=== PATIENT | female | born 1970 | race Caucasian/White ===

== ENCOUNTER 2016-04-20 23:00 | Emergency (ER) | payer MEDICARE ==
[2016-04-20] MEDS ORDERED: NORMAL SALINE 1000 ML 1,000 ML IV PRN (23:14)
[2016-04-20] MEDS ORDERED: ONDANSETRON HCL INJ/PF 4 MG/2 ML SDV IV ONE (23:14)
--- NOTE | 2016-04-20 23:18 | ER Document Report ---
ED GI/ - General Stated Complaint: CHEST PAIN Time seen by provider: 23:15 Mode of Arrival: Medic Information source: Patient TRAVEL OUTSIDE OF THE [place] IN LAST 30 DAYS: No - HPI Patient complains to provider of: Abdominal pain, Diarrhea, Urinary retention, Vomiting Onset: Yesterday Timing/Duration: Gradual Quality of pain: Achy Severity at maximum: Moderate Severity in ED: Moderate Pain Level: 3 Location: Chest pain, Epigastric, Left flank, Right flank Vaginal bleeding (Compared to normal period): None Associated symptoms: Chest pain, Diarrhea, Nausea, Urinary retention, Vomiting Exacerbated by: Movement, Coughing, Deep breathing Relieved by: Denies Similar symptoms previously: Yes Recently seen / treated by doctor: No Notes: 04/20/16 23:16 Patient is a 46-year-old female residing to the emergency room complaining of chest pain, back pain, "kidney pain"', diarrhea, vomiting, symptoms started yesterday evening, she denies a fever, no dysuria, states that she has actually not urinated all day today, patient recently moved here from [place] approximately 6 weeks ago and has not yet established primary care, reports a history of a thoracic aortic aneurysm, hypertension and emphysema, she is a smoker - Related Data Allergies/Adverse Reactions: No Known Allergies Allergy (Verified 08/21/15 12:01) Past Medical History - General Information source: Patient - Social History Smoking Status: Current Every Day Smoker Family History: CAD, Hyperlipidemia, Hypertension - Past Medical History Cardiac Medical History: Reports: Hx Heart Attack, Hx Hypercholesterolemia, Hx Hypertension Pulmonary Medical History: Reports: Hx Bronchitis, Hx COPD, Hx Pneumonia Neurological Medical History: Reports: Hx Migraine GI Medical History: Reports: Hx Gastroesophageal Reflux Disease Musculoskeltal Medical History: Reports Hx Musculoskeletal Trauma Psychiatric Medical History: Reports: Hx Anxiety Past Surgical History: Reports: Hx Appendectomy, Hx Cardiac Catheterization, Hx Section - 4, Hx Cholecystectomy, Hx Hysterectomy - Immunizations Immunizations up to date: Yes Hx Diphtheria, Pertussis, Tetanus Vaccination: Yes Hx Pneumococcal Vaccination: 11/24/12 Review of Systems - Review of Systems Constitutional: No symptoms reported EENT: No symptoms reported Cardiovascular: See HPI Respiratory: See HPI Gastrointestinal: See HPI Genitourinary: See HPI Female Genitourinary: No symptoms reported Musculoskeletal: Back pain Skin: No symptoms reported Hematologic/Lymphatic: No symptoms reported Neurological/Psychological: No symptoms reported -: Yes All other systems reviewed and negative Physical Exam - Vital signs Vitals: Temp Pulse Resp BP Pulse Ox 98.9 F 112 H 25 H 154/99 H 96 04/20/16 23:50 04/20/16 23:50 04/20/16 23:50 04/20/16 23:50 04/20/16 23:50 Interpretation: Normal - General General appearance: Appears well, Alert - HEENT Head: Normocephalic, Atraumatic Eyes: Normal Pupils: PERRL - Respiratory Respiratory status: No respiratory distress Chest status: Tender - Tender to palpate anterior chest wall Breath sounds: Normal Chest palpation: Normal - Cardiovascular Rhythm: Regular Heart sounds: Normal auscultation Murmur: No - Abdominal Inspection: Normal Distension: No distension Bowel sounds: Normal Tenderness: Tender - Tender to palpate epigastric region Organomegaly: No organomegaly - Back Back: Normal, Nontender - Extremities General upper extremity: Normal inspection, Nontender, Normal color, Normal ROM , Normal temperature General lower extremity: Normal inspection, Nontender, Normal color, Normal ROM , Normal temperature, Normal weight bearing. No: Krystyna's sign - Neurological Neuro grossly intact: Yes Cognition: Normal Orientation: AAOx4 [place] Coma Scale Eye Opening: Spontaneous [place] Coma Scale Verbal: Oriented [place] Coma Scale Motor: Obeys Commands [place] Coma Scale Total: 15 Speech: Normal Motor strength normal: LUE, RUE, LLE, RLE Sensory: Normal - Psychological Associated symptoms: Normal affect, Normal mood - Skin Skin Temperature: Warm Skin Moisture: Dry Skin Color: Normal Course - Re-evaluation Re-evalutation: 04/21/16 04:31 Patient resting comfortably, reports feeling much better after IV fluids and medications, able to tolerate by mouth intake, lab and imaging findings discussed with patient at bedside including a positive cocaine on urine drug screen, she denies knowledge of using cocaine, states she smokes some marijuana with friends and is concerned maybe it was laced with cocaine, imaging findings were discussed as well which show 4.2 cm thoracic aortic aneurysm which is unchanged from previous imaging, patient was advised to follow-up with a primary care provider, or return to emergency room if symptoms worsen, patient acknowledges understanding and agreement with this plan - Vital Signs Vital signs: Temp Pulse Resp BP Pulse Ox 98.2 F 112 H 23 H 188/118 H 95 04/21/16 04:23 04/20/16 23:50 04/21/16 04:21 04/21/16 04:21 04/21/16 04:21 - Laboratory Result Diagrams: 04/21/16 00:04 04/21/16 01:29 Laboratory results interpreted by me: 04/21/16 04/21/16 04/21/16 00:04 00:10 01:29 WBC 12.0 H RBC 6.14 H Hgb 18.6 H Hct 55.8 H Seg Neutrophils % 84.6 H Monocytes % 1.9 L Absolute Neutrophils 10.2 H Sodium 148.9 H BUN 35 H Glucose 171 H Calcium 10.9 H AST 37 H Alkaline Phosphatase 166 H Total Protein 10.8 H Lipase 12.9 L Urine Protein >=500 H Urine Ketones 20 H Urine Blood SMALL H Urine Nitrite POSITIVE H - Diagnostic Test Radiology reviewed: Image reviewed, Reports reviewed - EKG Interpretation by Me EKG shows normal: Sinus rhythm Rate: Tachycardia When compared to previous EKG there are: No significant change Procedures - Additional Procedures IV insertion Time performed: 02:23 Additional Procedures: IV insertion - 20-gauge IV placed in left antecubital space using ultrasound guidance Discharge - Discharge Clinical Impression: Cocaine use Abdominal pain Qualifiers: Abdominal location: generalized Qualified Code(s): R10.84 - Generalized abdominal pain Nausea and vomiting Qualifiers: Vomiting type: unspecified Vomiting Intractability: non-intractable Qualified Code(s): R11.2 - Nausea with vomiting, unspecified Chest pain Qualifiers: Chest pain type: unspecified Qualified Code(s): R07.9 - Chest pain, unspecified Condition: Stable Disposition: HOME, SELF-CARE Instructions: Chest Pain of Unclear Cause ([facility]), Chest Wall Pain ([facility]), Abdominal Pain ([facility]), Vomiting ([facility]), Cocaine Abuse ([facility]), Antinausea Medication ([facility]) Additional Instructions: Follow up with your primary care provider in one to 2 days. Return to the emergency room immediately if symptoms worsen or any additional concerns. Forms: Elevated Blood Pressure, Smoking Cessation Education
[2016-04-21 00:24] LABS: ABSOLUTE LYMPHOCYTES (AUTO) 1.6 10^3/uL (0.5-4.7); ABSOLUTE MONOCYTES (AUTO) 0.2 10^3/uL (0.1-1.4); ABSOLUTE NEUT (AUTO) 10.2 10^3/uL (1.7-8.2); BASOPHILS % (AUTO) 0.3 % (0-2); EOSINOPHILS % (AUTO) 0.1 % (0-6); HEMATOCRIT 55.8 % (36.0-47.0); HEMOGLOBIN 18.6 g/dL (12.0-15.5); LYMPHOCYTES % (AUTO) 13.1 % (13-45); MEAN CORPUSCULAR HEMOGLOBIN 30.4 pg (27.0-33.4); MEAN CORPUSCULAR HGB CONC 33.4 g/dL (32.0-36.0); MEAN CORPUSCULAR VOLUME 91 fl (80-97); MONOCYTES % (AUTO) 1.9 % (3-13); RED BLOOD COUNT 6.14 10^6/uL (3.72-5.28); RED CELL DISTRIBUTION WIDTH 13.7 % (11.5-14.0); SEGMENTED NEUTROPHILS % (AUTO) 84.6 % (42-78)
[2016-04-21] MEDS ORDERED: NORMAL SALINE 1000 ML 1,000 ML IV PRN (00:31)
[2016-04-21 00:46] LABS: CREATINE KINASE MB < 0.22 ng/mL (<4.55); TROPONIN I < 0.012 ng/mL
[2016-04-21 00:50] LABS: APPEARANCE,URINE SLIGHTLY-CLOUDY; BILIRUBIN,URINE NEGATIVE (NEGATIVE); GLUCOSE, URINE NEGATIVE (NEGATIVE); KETONES,URINE 20 mg/dL (NEGATIVE); LEUKOCYTE ESTERASE,URINE NEGATIVE (NEGATIVE); NITRITE,URINE POSITIVE (NEGATIVE); PROTEIN,URINE >=500 mg/dL (NEGATIVE); URINE SPECIFIC GRAVITY 1.035; UROBILINOGEN,URINE NEGATIVE mg/dL (<2.0)
[2016-04-21 01:11] LABS: URINE BARBITURATES SCREEN NEGATIVE; URINE METHADONE SCREEN NEGATIVE; URINE OPIATES LOW NEGATIVE; URINE PHENCYCLIDINE SCREEN NEGATIVE
[2016-04-21] MEDS ORDERED: ONDANSETRON 4 MG TAB.RAPDIS ONE (01:17)
[2016-04-21 01:55] LABS: ALANINE AMINOTRANSFERASE 40 U/L (9-52); ALBUMIN 4.8 g/dL (3.5-5.0); ALKALINE PHOSPHATASE 166 U/L (38-126); ANION GAP 18 (5-19); ASPARTATE AMINO TRANSFERASE 37 U/L (14-36); BILIRUBIN,TOTAL 1.2 mg/dL (0.2-1.3); BLOOD UREA NITROGEN 35 mg/dL (7-20); CALCIUM 10.9 mg/dL (8.4-10.2); CARBON DIOXIDE 28 mmol/L (22-30); CHLORIDE 103 mmol/L (98-107); GLUCOSE 171 mg/dL (75-110); LIPASE 12.9 U/L (23-300); POTASSIUM 3.9 mmol/L (3.6-5.0); SODIUM 148.9 mmol/L (137-145); TOTAL PROTEIN 10.8 g/dL (6.3-8.2)
[2016-04-21 01:56] LABS: ALCOHOL < 10 mg/dL (NONE DETECTED)
[2016-04-21] MEDS ORDERED: ONDANSETRON HCL INJ/PF 4 MG/2 ML SDV IV ONE (02:21)
[2016-04-21] MEDS ORDERED: MORPHINE SULFATE 10 MG/ML INJ IV ONE (02:21)
[2016-04-21] MEDS ORDERED: METOCLOPRAMIDE HCL INJ/PF 10 MG/2 ML SDV IV ONE (02:39)
[2016-04-21] MEDS ORDERED: METOPROLOL TARTRATE PF/INJ 5 MG/5 ML SDV IV ONE (04:08)
[2016-04-21] MEDS ORDERED: ONDANSETRON ODT 4 MG TAB (6 TAB/DSPK) PO PRN ×2 (04:32→04:37)
[2016-04-21 05:00] VITALS: BP 180/110
--- NOTE | 2016-04-21 12:47 | EKG REPORT ---
SEVERITY:- ABNORMAL ECG - SINUS TACHYCARDIA BIATRIAL ABNORMALITIES LEFT AXIS DEVIATION LEFT VENTRICULAR HYPERTROPHY : Confirmed by: Audrey Gayle MD 21-Apr-2016 12:47:05
== END 2016-04-21 05:05 | disposition home or self-care (01) ==
LOC: ER 23:00
DX: F14.90 Cocaine use, unspecified, uncomplicated (principal); R10.84 Generalized abdominal pain; R11.2 Nausea with vomiting, unspecified; R07.9 Chest pain, unspecified; R10.9 Unspecified abdominal pain; R19.7 Diarrhea, unspecified; R33.9 Retention of urine, unspecified; R11.10 Vomiting, unspecified; M54.9 Dorsalgia, unspecified; F17.210 Nicotine dependence, cigarettes, uncomplicated
CPT/HCPCS: 93005; 99285; 96361; 51701; 96374; 96375; 36415; 82553; 80307 ×2; 82550; 83690; 85025; 80053; 81001; 84484; 71275; 93010; A9270 ×2; J2765; J3490; J2270; J2405; J7030; S0119

== ENCOUNTER 2016-04-23 13:12 | Observation (INO) | payer MEDICARE ==
[2016-04-23] MEDS ORDERED: ASPIRIN 81 MG TABLET, CHEWABLE PO ONE (13:33)
[2016-04-23 14:10] LABS: ABSOLUTE BASOPHILS # (AUTO) 0.1 10^3/uL (0.0-0.2); ABSOLUTE EOSINOPHILS # (AUTO) 0.1 10^3/uL (0.0-0.6); ABSOLUTE LYMPHOCYTES (AUTO) 3.6 10^3/uL (0.5-4.7); ABSOLUTE MONOCYTES (AUTO) 0.9 10^3/uL (0.1-1.4); ABSOLUTE NEUT (AUTO) 10.9 10^3/uL (1.7-8.2); BASOPHILS % (AUTO) 0.4 % (0-2); EOSINOPHILS % (AUTO) 0.5 % (0-6); HEMATOCRIT 54.3 % (36.0-47.0); HEMOGLOBIN 18.1 g/dL (12.0-15.5); LYMPHOCYTES % (AUTO) 23.1 % (13-45); MEAN CORPUSCULAR HGB CONC 33.3 g/dL (32.0-36.0); MEAN CORPUSCULAR VOLUME 90 fl (80-97); MONOCYTES % (AUTO) 5.9 % (3-13); RED BLOOD COUNT 6.02 10^6/uL (3.72-5.28); RED CELL DISTRIBUTION WIDTH 13.7 % (11.5-14.0); SEGMENTED NEUTROPHILS % (AUTO) 70.1 % (42-78); WHITE BLOOD COUNT 15.6 10^3/uL (4.0-10.5)
[2016-04-23 14:46] LABS: PLATELET CLUMPS PRESENT; TOXIC GRANULATION 1+; TOXIC VACUOLATION PRESENT
[2016-04-23 14:47] LABS: RBC MORPHOLOGY COMMENT NORMO-CYTIC/CHROMIC
[2016-04-23 16:29] LABS: ALANINE AMINOTRANSFERASE 48 U/L (9-52); ALBUMIN 5.2 g/dL (3.5-5.0); ALKALINE PHOSPHATASE 122 U/L (38-126); ANION GAP 19 (5-19); ASPARTATE AMINO TRANSFERASE 31 U/L (14-36); BILIRUBIN,TOTAL 1.8 mg/dL (0.2-1.3); BLOOD UREA NITROGEN 23 mg/dL (7-20); CALCIUM 10.5 mg/dL (8.4-10.2); CARBON DIOXIDE 31 mmol/L (22-30); CHLORIDE 92 mmol/L (98-107); CREATINE KINASE 39 U/L (30-135); CREATININE RESULT 0.71 mg/dL (0.52-1.25); GLUCOSE 96 mg/dL (75-110); POTASSIUM 4.3 mmol/L (3.6-5.0); SODIUM 142.2 mmol/L (137-145); TOTAL PROTEIN 9.2 g/dL (6.3-8.2)
[2016-04-23] MEDS ORDERED: MORPHINE SULFATE 10 MG/ML INJ IM ONE (16:32)
--- NOTE | 2016-04-23 16:36 | ER Document Report ---
ED General <ABBEY CROCKER - Last Filed: 04/23/16 20:14> - General Mode of Arrival: Wheelchair Information source: Patient TRAVEL OUTSIDE OF THE [place] IN LAST 30 DAYS: No - HPI Onset: Other - 3 days Onset/Duration: Persistent Quality of pain: Achy, Sharp - Occasionally sharp Pain Level: 4 Associated symptoms: Chest pain, Nonproductive cough, Diarrhea, Nausea, Vomiting , Shortness of breath. denies: Fever Exacerbated by: Denies Relieved by: Denies Similar symptoms previously: Yes Recently seen / treated by doctor: Yes <FLORINDA LEE - Last Filed: 04/28/16 07:30> - General Chief Complaint: Chest Pain Stated Complaint: CHEST PAIN Notes: Patient presents complaining of chest pain for the past 3 days with nausea and vomiting for the past 4 days. Patient additionally complains of some shortness of breath. Patient reports cough but states she has chronic cough due to emphysema. Patient reports upper abdominal pain off and on for the past 4 days. Patient reports vomiting numerous times today and having diarrhea times one episode today. Patient does complain of low back pain with decreased urine output and is concerned that she may have a UTI. Patient was evaluated in emergency department with chest pain 3 days ago. Patient states that the chest pain never resolved. Patient does admit to having a thoracic aortic aneurysm. Patient had a CTA 2 days ago which measured 4.2 cm. Patient was advised that once the aneurysm reaches 4.5 cm, she will require surgery. Patient did have a positive urine drug screen for cocaine 2 days ago, patient denies any known cocaine use, patient does admit to using marijuana and suspects that the marijuana was laced with cocaine. (FLORINDA LEE) - Related Data Allergies/Adverse Reactions: No Known Allergies Allergy (Verified 04/23/16 13:32) Home Medications: Current Home Medications Alprazolam [Xanax] 1 mg PO QID 04/24/16 [History] Diltiazem HCl [Cardizem Cd] 180 mg PO BID 04/24/16 [History] Gabapentin [Neurontin] 800 mg PO TID 04/24/16 [History] Hydroxyzine HCl [Atarax 50 mg Tablet] 50 mg PO ASDIR PRN 04/24/16 [History] Lisinopril [Prinivil] 20 mg PO BID 04/24/16 [History] Metoprolol Tartrate [Lopressor 25 mg Tablet] 25 mg PO BID 04/24/16 [History] Past Medical History - General Information source: Patient - Social History Smoking Status: Current Every Day Smoker Chew tobacco use (# tins/day): No Frequency of alcohol use: None Drug Abuse: None Occupation: none Lives with: Spouse/Significant other Family History: CAD, Hyperlipidemia, Hypertension Patient has suicidal ideation: No Patient has homicidal ideation: No - Past Medical History Cardiac Medical History: Reports: Hx Heart Attack, Hx Hypercholesterolemia, Hx Hypertension, Other - Thoracic aortic aneurysm Pulmonary Medical History: Reports: Hx Bronchitis, Hx COPD, Hx Pneumonia Neurological Medical History: Reports: Hx Migraine Renal/ Medical History: Denies: Hx Peritoneal Dialysis GI Medical History: Reports: Hx Gastroesophageal Reflux Disease Musculoskeltal Medical History: Reports Hx Musculoskeletal Trauma Psychiatric Medical History: Reports: Hx Anxiety Past Surgical History: Reports: Hx Appendectomy, Hx Cardiac Catheterization, Hx Section - 4, Hx Cholecystectomy, Hx Hysterectomy - Immunizations Immunizations up to date: Yes Hx Diphtheria, Pertussis, Tetanus Vaccination: Yes Hx Pneumococcal Vaccination: 11/24/12 <FLORINDA LEE - Last Filed: 04/28/16 07:30> Review of Systems - Review of Systems Constitutional: No symptoms reported. denies: Fever, Recent illness EENT: No symptoms reported Cardiovascular: Chest pain. denies: Dizziness Respiratory: Cough, Short of breath Gastrointestinal: Abdominal pain, Diarrhea, Nausea, Vomiting. denies: Constipation Genitourinary: Flank pain, Other - Decreased urine output. denies: Dysuria Female Genitourinary: No symptoms reported Musculoskeletal: Back pain Skin: No symptoms reported Hematologic/Lymphatic: No symptoms reported Neurological/Psychological: No symptoms reported. denies: Confusion, Weakness <FLORINDA LEE - Last Filed: 04/28/16 07:30> Physical Exam - General General appearance: Appears well, Alert In distress: Mild - HEENT Head: Normocephalic, Atraumatic Eyes: Normal Conjunctiva: Normal Nasal: Normal Mouth/Lips: Normal Mucous membranes: Normal Neck: Normal, Supple. No: Lymphadenopathy - Respiratory Respiratory status: No respiratory distress Chest status: Tender - Right anterior chest wall tenderness with palpation Breath sounds: Nonproductive cough. No: Rales, Rhonchi, Stridor, Wheezing Chest palpation: Tender - Cardiovascular Rhythm: Regular Heart sounds: S1 appreciated, S2 appreciated Murmur: No - Abdominal Inspection: Normal Distension: No distension Bowel sounds: Normal Tenderness: Tender - Tenderness to epigastric area, left upper quadrant and right upper quadrant Organomegaly: No organomegaly - Back Back: CVA tenderness - Bilateral - Extremities General upper extremity: Normal inspection, Normal strength General lower extremity: Normal inspection, Normal strength - Neurological Neuro grossly intact: Yes Cognition: Normal Orientation: AAOx4 [place] Coma Scale Eye Opening: Spontaneous [place] Coma Scale Verbal: Oriented [place] Coma Scale Motor: Obeys Commands [place] Coma Scale Total: 15 - Psychological Associated symptoms: Normal affect, Normal mood - Skin Skin Temperature: Warm Skin Moisture: Dry Skin Color: Ecchymosis - Right side of neck, patient states from previous IV access <FLORINDA LEE - Last Filed: 04/28/16 07:30> - Vital signs Vitals: Temp Pulse Resp BP Pulse Ox 98.0 F 102 H 19 156/117 H 95 04/23/16 13:38 04/23/16 13:38 04/23/16 13:38 04/23/16 13:38 04/23/16 13:38 (ABBEY CROCKER) (FLORINDA LEE) Course - Laboratory Result Diagrams: 04/23/16 13:40 04/23/16 15:35 <ABBEY CROCKER - Last Filed: 04/23/16 20:14> - Laboratory Result Diagrams: 04/25/16 04:02 04/25/16 14:36 - Diagnostic Test Radiology reviewed: Reports reviewed - EKG Interpretation by Me EKG shows normal: Sinus rhythm Bledsoe/QRS: Left axis deviation When compared to previous EKG there are: Changes noted - Patient does demonstrate inverted T-wave in V2 as compared to EKG performed 3 days ago. <FLORINDA LEE - Last Filed: 04/28/16 07:30> - Re-evaluation Re-evalutation: 04/23/16 16:[address] Healy regarding patient presentation and diagnostic evaluation. Recommends treating for urinary infection, agrees with plan to treat her pain symptoms. RN at bedside attempting IV insertion. 04/23/16 17:35 Patient states that chest pain is resolved with the exception of her chronic right-sided chest discomfort that she always has. Patient states low back pain is improved after pain medication as well. Patient reports abdominal discomfort is improved although still complains of nausea with vomiting. 04/23/16 17:[address] Healy regarding patient's continued hypertension, recommends giving patient Ativan in light of patient's most recent UDS which was positive for cocaine. States that if Ativan does not improve patient's blood pressure then we can consider hydralazine. Does recommend consultation with hospitalist for likely admission. 04/23/16 17:[address] Mahan for admission, recommends repeating CTA of the chest to rule out dissection given her previous history, drug abuse and uncontrolled hypertension. States that if CTA is normal he will admit the patient. Dr. Healy agrees with plan to CTA patient, and will be by to evaluate patient for APC protocol. 04/23/16 18:[address] Spoke with Dr. Mahan who will forward patient's information to [facility] hospitalist, Dr. Song. Recommends having results of CTA called to Dr. Song. 04/23/16 18:59 Dr. Mahan advised of CTA results, agrees that pt can be admitted here to tele. He will advise Dr Song of pt status, as Dr Song will be the hospitalist to admit pt. 04/23/16 19:19 She reports that chest, abdomen and low back pain are starting to return. Patient feels that her chest has a burning sensation that she feels like a GI cocktail will improve. Bedside report and handoff given to Amarilys PERRY, reviewed patient's diagnostics thus far as well as patient's most recent repeat EKG. (FLORINDA LEE) - Vital Signs Vital signs: Temp Pulse Resp BP Pulse Ox 98.3 F 88 18 96/74 L 96 04/25/16 16:44 04/25/16 16:44 04/25/16 16:44 04/25/16 16:44 04/25/16 16:44 (ABBEY CROCKER) (FLORINDA LEE) - Laboratory Laboratory results interpreted by me: 04/23/16 04/23/16 04/23/16 13:40 15:35 15:35 WBC 15.6 H RBC 6.02 H Hgb 18.1 H Hct 54.3 H Absolute Neutrophils 10.9 H Chloride 92 L Carbon Dioxide 31 H BUN 23 H Calcium 10.5 H Total Bilirubin 1.8 H Total Protein 9.2 H Albumin 5.2 H Lipase 21.6 L Urine Protein Urine Ketones Urine Blood Urine Bilirubin Urine Urobilinogen 04/23/16 17:03 WBC RBC Hgb Hct Absolute Neutrophils Chloride Carbon Dioxide BUN Calcium Total Bilirubin Total Protein Albumin Lipase Urine Protein 100 H Urine Ketones 80 H Urine Blood SMALL H Urine Bilirubin SMALL H Urine Urobilinogen 2.0 H (ABBEY CROCKER) 04/23/16 19:01 Labs- Entire Visit 04/23/16 04/23/16 04/23/16 13:40 13:40 15:35 WBC 15.6 H RBC 6.02 H Hgb 18.1 H Hct 54.3 H MCV 90 MCH 30.0 MCHC 33.3 RDW 13.7 Plt Count 167 Seg Neutrophils % 70.1 Lymphocytes % 23.1 Monocytes % 5.9 Eosinophils % 0.5 Basophils % 0.4 Absolute Neutrophils 10.9 H Absolute Lymphocytes 3.6 Absolute Monocytes 0.9 Absolute Eosinophils 0.1 Absolute Basophils 0.1 Toxic Granulation 1+ Toxic Vacuolation PRESENT Clumped Platelets PRESENT Platelet Comment Not Reportable RBC Morph Comment NORMO-CYTIC/CHROMIC Sodium 142.2 Potassium 4.3 Chloride 92 L Carbon Dioxide 31 H Anion Gap 19 BUN 23 H Creatinine 0.71 Est GFR ( Amer) > 60 Est GFR (Non-Af Amer) > 60 Glucose 96 Calcium 10.5 H Total Bilirubin 1.8 H Direct Bilirubin 0.0 AST 31 ALT 48 Alkaline Phosphatase 122 Creatine Kinase 39 CK-MB (CK-2) Cancelled Troponin I Cancelled Total Protein 9.2 H Albumin 5.2 H Lipase Urine Color Urine Appearance Urine pH Ur Specific [place] Urine Protein Urine Glucose (UA) Urine Ketones Urine Blood Urine Nitrite Urine Bilirubin Urine Urobilinogen Ur Leukocyte Esterase Urine WBC (Auto) Urine RBC (Auto) Urine Bacteria (Auto) Squamous Epi Cells Auto Urine Mucus (Auto) Urine Ascorbic Acid Urine Opiates Screen Urine Methadone Screen Ur Barbiturates Screen Ur Phencyclidine Scrn Ur Amphetamines Screen U Benzodiazepines Scrn Urine Cocaine Screen U Marijuana (THC) Screen 04/23/16 04/23/16 04/23/16 15:35 15:35 16:32 WBC RBC Hgb Hct MCV MCH MCHC RDW Plt Count Seg Neutrophils % Lymphocytes % Monocytes % Eosinophils % Basophils % Absolute Neutrophils Absolute Lymphocytes Absolute Monocytes Absolute Eosinophils Absolute Basophils Toxic Granulation Toxic Vacuolation Clumped Platelets Platelet Comment RBC Morph Comment Sodium Potassium Chloride Carbon Dioxide Anion Gap BUN Creatinine Est GFR ( Amer) Est GFR (Non-Af Amer) Glucose Calcium Total Bilirubin Direct Bilirubin AST ALT Alkaline Phosphatase Creatine Kinase CK-MB (CK-2) 0.40 Troponin I < 0.012 Cancelled Total Protein Albumin Lipase 21.6 L Urine Color Urine Appearance Urine pH Ur Specific [place] Urine Protein Urine Glucose (UA) Urine Ketones Urine Blood Urine Nitrite Urine Bilirubin Urine Urobilinogen Ur Leukocyte Esterase Urine WBC (Auto) Urine RBC (Auto) Urine Bacteria (Auto) Squamous Epi Cells Auto Urine Mucus (Auto) Urine Ascorbic Acid Urine Opiates Screen Urine Methadone Screen Ur Barbiturates Screen Ur Phencyclidine Scrn Ur Amphetamines Screen U Benzodiazepines Scrn Urine Cocaine Screen U Marijuana (THC) Screen 04/23/16 04/23/16 17:03 17:03 WBC RBC Hgb Hct MCV MCH MCHC RDW Plt Count Seg Neutrophils % Lymphocytes % Monocytes % Eosinophils % Basophils % Absolute Neutrophils Absolute Lymphocytes Absolute Monocytes Absolute Eosinophils Absolute Basophils Toxic Granulation Toxic Vacuolation Clumped Platelets Platelet Comment RBC Morph Comment Sodium Potassium Chloride Carbon Dioxide Anion Gap BUN Creatinine Est GFR ( Amer) Est GFR (Non-Af Amer) Glucose Calcium Total Bilirubin Direct Bilirubin AST ALT Alkaline Phosphatase Creatine Kinase CK-MB (CK-2) Troponin I Total Protein Albumin Lipase Urine Color DARK YELLOW Urine Appearance CLOUDY Urine pH 6.0 Ur Specific [place] 1.031 Urine Protein 100 H Urine Glucose (UA) NEGATIVE Urine Ketones 80 H Urine Blood SMALL H Urine Nitrite NEGATIVE Urine Bilirubin SMALL H Urine Urobilinogen 2.0 H Ur Leukocyte Esterase NEGATIVE Urine WBC (Auto) 4 Urine RBC (Auto) 5 Urine Bacteria (Auto) 3+ Squamous Epi Cells Auto 22 Urine Mucus (Auto) MANY Urine Ascorbic Acid NEGATIVE Urine Opiates Screen NEGATIVE Urine Methadone Screen NEGATIVE Ur Barbiturates Screen NEGATIVE Ur Phencyclidine Scrn NEGATIVE Ur Amphetamines Screen NEGATIVE U Benzodiazepines Scrn UNCONFIRMED POSITIVE Urine Cocaine Screen UNCONFIRMED POSITIVE U Marijuana (THC) Screen UNCONFIRMED POSITIVE (FLORINDA LEE) Discharge - Discharge Admitting Provider: Hospitalist - Dr. Song Unit Admitted: ICU <FRISHAHEEN,ABBEY - Last Filed: 04/23/16 20:14> <FLORINDA LEE - Last Filed: 04/28/16 07:30> - Discharge Clinical Impression: Chest pain, Cocaine use, Thoracic aortic aneurysm without rupture Hypertension Qualifiers: Hypertension type: essential hypertension Qualified Code(s): I10 - Essential ( primary) hypertension Disposition: ADMITTED INPATIENT
[2016-04-23] MEDS ORDERED: MORPHINE SULFATE 10 MG/ML INJ IV ONE (16:41)
[2016-04-23] MEDS ORDERED: NORMAL SALINE 1000 ML 1,000 ML IV ONE (16:41)
[2016-04-23] MEDS ORDERED: CEFTRIAXONE RTU 1 GM/D5W 50 ML IV ONE (16:41)
[2016-04-23] MEDS ORDERED: ONDANSETRON HCL INJ/PF 4 MG/2 ML SDV IV ONE (16:42)
[2016-04-23 16:43] LABS: TROPONIN I < 0.012 ng/mL
[2016-04-23] MEDS ORDERED: FAMOTIDINE INJ/PF 20 MG/2 ML SDV IV ONE (16:45)
[2016-04-23 17:31] LABS: APPEARANCE,URINE CLOUDY; BILIRUBIN,URINE SMALL (NEGATIVE); GLUCOSE, URINE NEGATIVE (NEGATIVE); KETONES,URINE 80 mg/dL (NEGATIVE); LEUKOCYTE ESTERASE,URINE NEGATIVE (NEGATIVE); NITRITE,URINE NEGATIVE (NEGATIVE); PROTEIN,URINE 100 mg/dL (NEGATIVE); URINE SPECIFIC GRAVITY 1.031
[2016-04-23] MEDS ORDERED: METOCLOPRAMIDE HCL INJ/PF 10 MG/2 ML SDV IV ONE (17:34)
[2016-04-23] MEDS ORDERED: LORAZEPAM INJ 2 MG/1 ML VIAL IV ONE (17:38)
[2016-04-23 17:55] LABS: URINE BARBITURATES SCREEN NEGATIVE; URINE METHADONE SCREEN NEGATIVE; URINE OPIATES LOW NEGATIVE; URINE PHENCYCLIDINE SCREEN NEGATIVE
[2016-04-23] MEDS ORDERED: MAG HYDROX/AL HYDROX/SIMETH SUSP 30 ML UDCUP PO ONE (19:16)
[2016-04-23] MEDS ORDERED: LIDOCAINE 2% VISCOUS SOLN 20 ML UDCUP PO ONE (19:16)
[2016-04-23] MEDS ORDERED: NICOTINE 14 MG/24 HR PATCH.TD24 TD PRN (21:08)
[2016-04-23] MEDS ORDERED: ACETAMINOPHEN 325 MG TABLET PO PRN (21:10)
--- NOTE | 2016-04-23 21:37 | PDOC H&P ---
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 No stent. Has been "some time" since her last stress test. Presents to the emergency room for a variety of complaints, but primarily sharp mid and left-sided chest pain that seems to increase with movement and deep breath. Was seen in the emergency room 3 days ago for somewhat similar chest pain. States the pain simply has not resolved. Patient has been discussed with the day hospitalist who had discussed the patient with the emergency room nurse practitioner who evaluated the patient. Blood pressures noted to be quite elevated for a number of hours prior to my seeing her, but pressures have basically normalized without specific treatment of same. A number of associated symptoms, including nausea and vomiting times "150 at least." Bilious emesis. Diarrhea times one. No dysuria. Has a known thoracic aortic aneurysm. Measured 4.2 cm when seen in the emergency room recent prior visit. Initially denied illicit drug use, but when I described her drug screen findings to her, she rather emphatically stated "I'm not a Dope smoker!!" Stated she had smoked marijuana only to achieve pain relief, and it made her feel "funny." She also rather emphatically stated that someone must have put cocaine in the marijuana, stating that "I would never use that!!" Pack-a-day smoker, but none for the past 2 days. No alcohol use. Currently resting quietly, pain-free. No history of pulmonary embolus or DVT. Laboratory results are listed in [facility] and are reviewed. X-ray summary results are listed below, with full report(s) reviewed. . EKG 2 reviewed. And compared to prior tracing from the of this month. Social history/personal habits: . 3 children. On disability due to "nerve disorder," along with her aneurysm. Personal habits as noted above. Allergies/adverse reactions NKDA. Home medications are reviewed by discussion with patient and are to be reconciled by nursing staff in [facility]. Home medications initially autopopulated into [facility] may not accurately reflect patient's true medications, dosages, and/or frequencies. REVIEW OF SYSTEMS: Constitutional: No fever or chills. Eyes: Doesn't have glasses but states that "I sure need them." ENT: No swallowing problems or complaints. No hearing problems or complaints. Pulmonary: No current complaints. Cardiovascular: See history and present illness. Gastrointestinal: See history and present illness. Skin: No current complaints, including rashes. Hematologic: No unusual easy bruising or bleeding. Neurologic: No current complaints, including numbness or tingling. Musculoskeletal: Joint pain from arthritis. Psychiatric: Anxiety depression; denies suicidal or homicidal ideation. Endocrine: No current complaints, including polyuria. Genitourinary: No current complaints, including dysuria. PHYSICAL EXAMINATION: 5 feet 3 inches tall. 81.5 kg. BMI 31.8 kg/m. Blood pressure 124/93. Pulse 92 and regular. 93% saturation on room air. Respirations are 15 and unlabored. Temperature 98.6. Obese somewhat chronically ill-appearing female, who nevertheless appears approximately her stated age. Pleasant awake alert and cooperative. Rather talkative. Somewhat anxious, but no elayne agitation. Female emergency room nursing assistants teacher Chyna is present. Skin is warm and dry. No grossly obvious evidence of rash in areas of skin examined. No subcutaneous nodules palpated. ENT: Hearing grossly normal to normal conversation. Tongue midline on protrusion pink and slightly moist. Eyes: No scleral icterus. Pupils equal and reactive to light at 4 mm. [place] conjunctivae. Neck is supple and nontender to gentle active range of motion and palpation. Midline trachea. No palpable thyroid nodule mass enlargement or tenderness. Lymphatic: No palpable cervical or clavicular nodes. Neck and lymphatic exams limited by patient body habitus. Psychiatric: Fair to reasonable insight into acute and chronic medical issues. Oriented to time location and why here. Lungs: Auscultation reveals clear and equal breath sounds bilaterally. No use of accessory respiratory muscles. Cardiovascular: Heart regular rate and rhythm, without gallop murmur or rub. No carotid or abdominal aortic bruits. No ankle or pedal edema. Faintly palpable dorsalis pedis pulses. Abdomen: soft, somewhat obese, nontender with positive bowel sounds. Unable to adequately evaluate abdomen for masses or organomegaly due to body habitus. No reproduction of her chest pain with upper abdominal compression, but positive reproduction with compression of her left upper medial anterior chest wall and upper sternum. Extremities: Feet are warm and dry. No calf tenderness to compression. No grossly obvious visual evidence of calf swelling. Gentle manipulation of lower extremities fails to reveal any obvious evidence of injury or instability to knees hips or ankles. Neurologic: Moves upper extremities grossly normally. Patellar reflexes absent. Absent Babinski. Light touch is intact at feet. Dorsiflexion and plantarflexion of feet 5 / 5 and symmetric. Past Medical History Cardiac Medical History: Reports: Coronary Artery Disease, Myocardial Infarction , Hypertension, Other - Thoracic aortic aneurysm Denies: DVT, Hyperlipidema, Pulmonary Embolism Pulmonary Medical History: Reports: Bronchitis, Chronic Obstructive Pulmonary Disease (COPD), Pneumonia EENT Medical History: Reports: Eyes - States she needs glasses. Denies: Ears, Throat Neurological Medical History: Reports: Migraine Denies: Hemorrhagic CVA, Ischemic CVA, Seizures Endocrine Medical History: Denies: Diabetes Mellitus Type 1, Diabetes Mellitus Type 2, Hyperthyroidism, Hypothyroidism Renal/ Medical History: Reports: Other - Frequent UTIs. GI Medical History: Reports: Gastroesophageal Reflux Disease, Hepatitis - Hepatitis C, untreated Denies: Cirrhosis, Peptic Ulcer Disease Musculoskeltal Medical History: Reports: Arthritis Skin Medical History: Reports: None Denies: Eczema, Psoriasis Psychiatric Medical History: Reports: Depression, General Anxiety Disorder, Substance Abuse, Tobacco Dependency Denies: Alcohol Dependency Hematology: Reports: None Infectious Medical History: Reports: Hepatitis C Denies: Hepatitis B Past Surgical History Past Surgical History: Reports: Appendectomy, Cardiac Catheterization, Section - 4, Cholecystectomy, Hysterectomy Social History Information Source: Patient, Emergency Med Personnel, [facility] Records Lives with: Spouse/Significant other Smoking Status: Current Every Day Smoker Frequency of Alcohol Use: None Drugs: Cocaine, Marijuana - Advance Directive Resuscitation Status: Full Code Surrogate healthcare decision maker:: Family History Family History: CAD, Hyperlipidemia, Hypertension Parental Family History Reviewed: Yes Children Family History Reviewed: Yes Sibling(s) Family History Reviewed.: Yes Medication/Allergy Home Medications: RX: Alprazolam [Xanax] 1 mg PO QID 04/24/16 RX: Diltiazem HCl [Cardizem Cd] 180 mg PO BID 04/24/16 RX: Gabapentin [Neurontin] 800 mg PO TID 04/24/16 RX: Hydroxyzine HCl [Atarax 50 mg Tablet] 50 mg PO ASDIR PRN 04/24/16 RX: Lisinopril [Prinivil] 20 mg PO BID 04/24/16 RX: Metoprolol Tartrate [Lopressor 25 mg Tablet] 25 mg PO BID 04/24/16 Hydrocodone/Acetaminophen [[place] 5-325 mg Tablet] 1 tab PO Q6HP PRN #20 tablet 04/25/16 Ondansetron [Zofran Odt] 8 mg PO Q8HP PRN #20 tab.rapdis 04/25/16 RX: Acetaminophen [Tylenol 325 mg Tablet] 650 mg PO Q8HP PRN tablet 04/25/16 RX: Diltiazem HCl [Cardizem Cd 180 mg Capsule] 180 mg PO Q12A capsule.cr Allergies/Adverse Reactions: No Known Allergies Allergy (Verified 04/23/16 13:32) Physical Exam Vital Signs: Temp Pulse Resp BP Pulse Ox 98.6 F 102 H 16 172/138 H 93 04/23/16 19:08 04/23/16 13:38 04/23/16 19:08 04/23/16 19:08 04/23/16 19:08 Results Impressions: Chest X-Ray 04/23/16 13:33 IMPRESSION: NO ACUTE RADIOGRAPHIC FINDING IN THE CHEST. Chest/Abdomen CTA 04/23/16 17:43 IMPRESSION: No CT angio evidence of thoracic aortic dissection or acute pulmonary emboli. Ascending aorta measures 4 cm in diameter, correlate clinically for aortic stenosis. Assessment & Plan - Diagnosis (1) CAD (coronary artery disease), [place] coronary artery Qualifiers: [place] vs. transplanted heart: [place] heart Associated angina: without angina Qualified Code(s): I25.10 - Atherosclerotic heart disease of [place] coronary artery without angina pectoris Is this a current diagnosis for this admission?: Yes (2) Cocaine use Is this a current diagnosis for this admission?: Yes (3) Hypertensive urgency Is this a current diagnosis for this admission?: YesPlan: Pressures have essentially normalized without specific medication treatment. Resume home medications as appropriate once these have been reviewed. (4) Leukocytosis Qualifiers: Leukocytosis type: unspecified Qualified Code(s): D72.829 - Elevated white blood cell count, unspecified Is this a current diagnosis for this admission?: YesPlan: No specific etiology. Perhaps a stress response due to her substance abuse. Follow-up CBC in the morning. (5) Nausea and vomiting Qualifiers: Vomiting type: unspecified Vomiting Intractability: non-intractable Qualified Code(s): R11.2 - Nausea with vomiting, unspecified Is this a current diagnosis for this admission?: YesPlan: When necessary Phenergan. Clear liquid diet. (6) Precordial chest pain Is this a current diagnosis for this admission?: Yes (7) Chest pain Qualifiers: Chest pain type: unspecified Qualified Code(s): R07.9 - Chest pain, unspecified Is this a current diagnosis for this admission?: YesPlan: Likely musculoskeletal in origin, but given her history of known coronary artery disease,Patient will be placed in observation bed under chest pain protocol. Serial troponin's . Repeat EKG. lipid panel. I have strongly urged patient to be careful getting out of bed, to avoid a fall with injury. Knee high SCDs for DVT prophylaxis, along with subcutaneous Lovenox . Impression and plans were discussed with patient, who concurs. Time spent in evaluation and management of patient: 65 minutes. (8) Marijuana use Is this a current diagnosis for this admission?: Yes (9) Hepatitis C Qualifiers: Viral hepatitis chronicity: chronic Hepatic coma status: without hepatic coma Qualified Code(s): B18.2 - Chronic viral hepatitis C Is this a current diagnosis for this admission?: Yes (10) Thoracic aortic aneurysm without rupture Is this a current diagnosis for this admission?: YesPlan: Continued outpatient follow-up. (11) Tobacco dependency Is this a current diagnosis for this admission?: YesPlan: When necessary nicotine patch.
[2016-04-23] MEDS: LISINOPRIL 10 MG TABLET PO SCH (23:02)
--- NOTE | 2016-04-23 23:04 | EKG REPORT ---
SEVERITY:- ABNORMAL ECG - SINUS RHYTHM LEFT AXIS DEVIATION ABNRM R PROG, CONSIDER ASMI OR LEAD PLACEMENT : Confirmed by: Audrey Gayle MD 23-Apr-2016 23:03:58
--- NOTE | 2016-04-23 23:04 | EKG REPORT ---
SEVERITY:- ABNORMAL ECG - SINUS RHYTHM LEFT AXIS DEVIATION LEFT VENTRICULAR HYPERTROPHY NONSPECIFIC T ABNORMALITIES, INFERIOR LEADS BORDERLINE PROLONGED QT INTERVAL : Confirmed by: Audrey Gayle MD 23-Apr-2016 23:03:47
[2016-04-23] MEDS: PROMETHAZINE HCL INJ 25 MG/1 ML VIAL IV PRN (23:56)
[2016-04-23] MEDS: MAG HYDROX/AL HYDROX/SIMETH SUSP 30 ML UDCUP PO PRN (23:57)
[2016-04-23] MEDS: OXYCODONE HCL IR 5 MG TABLET PO PRN (23:57)
[2016-04-24] MEDS: LANSOPRAZOLE 30 MG TAB.RAP.DR PO SCH ×2 (06:10→16:17)
[2016-04-24] MEDS: PROMETHAZINE HCL INJ 25 MG/1 ML VIAL IV PRN (06:12)
[2016-04-24] MEDS: OXYCODONE HCL IR 5 MG TABLET PO PRN ×2 (06:59→16:51)
[2016-04-24] MEDS ORDERED: HYDRALAZINE HCL INJ/PF 20 MG/1 ML SDV ONE (08:06)
[2016-04-24] MEDS ORDERED: HYDRALAZINE HCL INJ/PF 20 MG/1 ML SDV IV ONE (08:20)
--- NOTE | 2016-04-24 08:33 | EKG REPORT ---
SEVERITY:- ABNORMAL ECG - SINUS RHYTHM PROBABLE LEFT ATRIAL ABNORMALITY LEFT AXIS DEVIATION LEFT VENTRICULAR HYPERTROPHY BORDERLINE PROLONGED QT INTERVAL : Confirmed by: Chris Jacobs 24-Apr-2016 08:33:25
[2016-04-24] MEDS: ASPIRIN 81 MG TABLET, ENT COATED PO SCH (09:12)
[2016-04-24] MEDS: MAG HYDROX/AL HYDROX/SIMETH SUSP 30 ML UDCUP PO PRN (09:12)
[2016-04-24] MEDS: DILTIAZEM HCL 180 MG CAPSULE.CR PO SCH ×2 (09:12→21:42)
[2016-04-24 09:13] LABS: ABSOLUTE MONOCYTES (AUTO) 0.6 10^3/uL (0.1-1.4); ABSOLUTE NEUT (AUTO) 6.6 10^3/uL (1.7-8.2); BASOPHILS % (AUTO) 0.3 % (0-2); EOSINOPHILS % (AUTO) 0.4 % (0-6); HEMATOCRIT 49.9 % (36.0-47.0); HEMOGLOBIN 16.8 g/dL (12.0-15.5); HGB HCT DIFFERENCE 0.5; LYMPHOCYTES % (AUTO) 21.6 % (13-45); MEAN CORPUSCULAR HEMOGLOBIN 30.3 pg (27.0-33.4); MEAN CORPUSCULAR HGB CONC 33.7 g/dL (32.0-36.0); MEAN CORPUSCULAR VOLUME 90 fl (80-97); MONOCYTES % (AUTO) 6.5 % (3-13); RED BLOOD COUNT 5.55 10^6/uL (3.72-5.28); RED CELL DISTRIBUTION WIDTH 13.3 % (11.5-14.0); SEGMENTED NEUTROPHILS % (AUTO) 71.2 % (42-78); WHITE BLOOD COUNT 9.2 10^3/uL (4.0-10.5)
[2016-04-24] MEDS: LISINOPRIL 10 MG TABLET PO SCH (09:13)
[2016-04-24] MEDS: DOCUSATE SODIUM 100 MG CAPSULE PO SCH ×2 (09:13→17:01)
[2016-04-24] MEDS: ENOXAPARIN SODIUM INJ 40 MG/0.4 ML DISP.SYRIN SUBCUT SCH (09:14)
[2016-04-24 09:39] LABS: CHOLESTEROL 198.91 mg/dL (0-200); Direct HDL 37 mg/dL (>40); TRIGLYCERIDES 195 mg/dL (<150)
[2016-04-24 09:50] LABS: DIRECT LDL 139 mg/dL (<100)
[2016-04-24] MEDS ORDERED: DILTIAZEM HCL 180 MG CAPSULE.CR PO SCH (10:00)
[2016-04-24] MEDS ORDERED: ONDANSETRON HCL INJ/PF 4 MG/2 ML SDV IV ONE (11:11)
[2016-04-24] MEDS ORDERED: PROCHLORPERAZINE EDISYLATE INJ 10 MG/2 ML VIAL IV ONE (14:00)
[2016-04-24] MEDS ORDERED: KETOROLAC TROMETHAMINE INJ/PF 30 MG/1 ML SDV IV ONE (14:00)
[2016-04-24] MEDS ORDERED: ALPRAZOLAM 0.5 MG TABLET PO PRN (15:42)
[2016-04-24] MEDS ORDERED: HYDROXYZINE PAMOATE 50 MG CAPSULE PO PRN (15:48)
[2016-04-24] MEDS ORDERED: METOPROLOL TARTRATE 25 MG TABLET PO ONE (16:00)
[2016-04-24] MEDS ORDERED: NORMAL SALINE 1000 ML 1,000 ML IV PRN (16:01)
--- NOTE | 2016-04-24 16:05 | PDOC PROGRESS REPORT ---
Subjective Progress Note for:: 04/24/16 Subjective:: The patient was seen earlier today on rounds. The patient states that she is having a migraine headache. The patient also notes four-day history of nausea vomiting which has persisted and with just nausea for now. Patient denies any fevers or chills. The patient has remained afebrile. Blood pressures have been in a good range. When prompted the patient voices no other concerns at this time. Review of systems: The rest of the review of systems is negative. Physical Exam Vital Signs: Temp Pulse Resp BP Pulse Ox 98.3 F 113 H 18 136/91 H 96 04/24/16 11:44 04/24/16 14:00 04/24/16 11:44 04/24/16 11:44 04/24/16 11:44 Intake & Output 04/22/16 04/23/16 04/24/16 23:59 23:59 23:59 Intake Total 0 Output Total 0 Balance 0 Weight 81.5 kg General appearance: PRESENT: no acute distress, cooperative, well-developed, well-nourished Head exam: PRESENT: atraumatic, normocephalic Eye exam: PRESENT: conjunctiva pink, EOMI, PERRLA. ABSENT: scleral icterus Ear exam: PRESENT: normal external ear exam Mouth exam: PRESENT: moist, tongue midline Neck exam: ABSENT: carotid bruit, JVD, lymphadenopathy, thyromegaly Respiratory exam: PRESENT: clear to auscultation benji, symmetrical, unlabored. ABSENT: rales, rhonchi, tachypnea, wheezes Cardiovascular exam: PRESENT: RRR. ABSENT: diastolic murmur, rubs, systolic murmur Pulses: PRESENT: normal dorsalis pedis pul Vascular exam: PRESENT: normal capillary refill GI/Abdominal exam: PRESENT: normal bowel sounds, soft. ABSENT: distended, guarding, mass, organolmegaly, rebound, tenderness Rectal exam: PRESENT: deferred Extremities exam: PRESENT: full ROM. ABSENT: calf tenderness, clubbing, pedal edema Neurological exam: PRESENT: alert, awake, oriented to person, oriented to place , oriented to time, oriented to situation, CN II-XII grossly intact. ABSENT: motor sensory deficit Psychiatric exam: PRESENT: appropriate affect, normal mood. ABSENT: homicidal ideation, suicidal ideation Skin exam: PRESENT: dry, intact, warm. ABSENT: cyanosis, rash Results Laboratory Results: 04/24/16 08:53 04/24/16 04/24/16 08:53 08:53 WBC 9.2 RBC 5.55 H Hgb 16.8 H Hct 49.9 H MCV 90 MCH 30.3 MCHC 33.7 RDW 13.3 Plt Count 203 Seg Neutrophils % 71.2 Lymphocytes % 21.6 Monocytes % 6.5 Eosinophils % 0.4 Basophils % 0.3 Absolute Neutrophils 6.6 Absolute Lymphocytes 2.0 Absolute Monocytes 0.6 Absolute Eosinophils 0.0 Absolute Basophils 0.0 Triglycerides 195 H Cholesterol 198.91 LDL Cholesterol Direct 139 H VLDL Cholesterol 39.0 H HDL Cholesterol 37 L 04/24/16 04/24/16 01:22 08:53 Troponin I < 0.012 0.019 Impressions: Chest X-Ray 04/23/16 13:33 IMPRESSION: NO ACUTE RADIOGRAPHIC FINDING IN THE CHEST. Chest/Abdomen CTA 04/23/16 17:43 IMPRESSION: No CT angio evidence of thoracic aortic dissection or acute pulmonary emboli. Ascending aorta measures 4 cm in diameter, correlate clinically for aortic stenosis. Assessment & Plan - Diagnosis (1) Acute gastroenteritis Is this a current diagnosis for this admission?: YesPlan: Will continue when necessary anti-medics and hydrate the patient (2) Hypertensive urgency Is this a current diagnosis for this admission?: YesPlan: Will resume the patient's home medications as well as when necessary coverage overall this has improved. Selected Entries 04/24/16 11:44 Blood Pressure 136/91 H (3) CAD (coronary artery disease), [place] coronary artery Qualifiers: [place] vs. transplanted heart: [place] heart Associated angina: without angina Qualified Code(s): I25.10 - Atherosclerotic heart disease of [place] coronary artery without angina pectoris Is this a current diagnosis for this admission?: YesPlan: Will continue home medications. (4) Hypertension Qualifiers: Hypertension type: essential hypertension Qualified Code(s): I10 - Essential (primary) hypertension Plan: Will continue home medications. (5) Cocaine use Is this a current diagnosis for this admission?: Yes (6) Headache Qualifiers: Headache type: other headache syndrome Qualified Code(s): G44.89 - Other headache syndrome Is this a current diagnosis for this admission?: YesPlan: Patient states that she's had a history of migraines. Probably prompted by the patient's gastroenteritis. Will give the patient a dose of Toradol as well as anti-medics therapy. (7) Hepatitis C Qualifiers: Viral hepatitis chronicity: chronic Hepatic coma status: without hepatic coma Qualified Code(s): B18.2 - Chronic viral hepatitis C Is this a current diagnosis for this admission?: Yes (8) Thoracic aortic aneurysm without rupture Is this a current diagnosis for this admission?: YesPlan: Stable (9) Tobacco dependency Is this a current diagnosis for this admission?: YesPlan: Spent 3 minutes discussing smoking cessation education. The patient declines any pharmacological intervention at this time however will add a PRN nicotine patch. - Time Time Spent with patient: on this visit including assessment, plan, physical examination, family meeting, and patient education is 35 minutes. Time Spent with patient: 35 or more minutes Medications reviewed and adjusted accordingly: Yes Anticipated discharge: Home Disposition: The patient is a full code. Pending patient's symptomatology and diagnostic findings will reevaluate in the a.m.
[2016-04-24] MEDS ORDERED: (PENDING PHARMACY ID) (Diltiazem Hcl [Cardizem Cd] 180 MG) PO SCH (18:00)
[2016-04-24] MEDS ORDERED: (PENDING PHARMACY ID) (Lisinopril [Prinivil] 20 MG) PO SCH (18:00)
[2016-04-24] MEDS ORDERED: LISINOPRIL 10 MG TABLET PO SCH ×2 (18:00→22:00)
[2016-04-24] MEDS ORDERED: GABAPENTIN 400 MG CAPSULE PO SCH (22:00)
[2016-04-25] MEDS ORDERED: NORMAL SALINE 1000 ML 400 ML IV ONE (04:14)
[2016-04-25] MEDS ORDERED: NORMAL SALINE 1000 ML 1,000 ML IV ONE ×2 (04:30→05:30)
[2016-04-25 04:33] LABS: HEMATOCRIT 43.5 % (36.0-47.0); HEMOGLOBIN 14.8 g/dL (12.0-15.5); HGB HCT DIFFERENCE 0.9; MEAN CORPUSCULAR HEMOGLOBIN 30.6 pg (27.0-33.4); MEAN CORPUSCULAR HGB CONC 34.1 g/dL (32.0-36.0); MEAN CORPUSCULAR VOLUME 90 fl (80-97); RED BLOOD COUNT 4.84 10^6/uL (3.72-5.28); RED CELL DISTRIBUTION WIDTH 13.2 % (11.5-14.0); WHITE BLOOD COUNT 8.3 10^3/uL (4.0-10.5)
[2016-04-25] MEDS: METOPROLOL TARTRATE 25 MG TABLET PO SCH ×2 (05:16→17:02)
[2016-04-25] MEDS: LANSOPRAZOLE 30 MG TAB.RAP.DR PO SCH ×2 (05:16→16:23)
[2016-04-25] MEDS: DILTIAZEM HCL 180 MG CAPSULE.CR PO SCH ×2 (05:16→17:02)
[2016-04-25] MEDS: GABAPENTIN 400 MG CAPSULE PO SCH ×2 (05:27→14:51)
[2016-04-25] MEDS ORDERED: LISINOPRIL 10 MG TABLET PO SCH ×2 (06:00→10:00)
[2016-04-25] MEDS ORDERED: METOPROLOL TARTRATE 25 MG TABLET PO SCH (06:00)
[2016-04-25 06:20] LABS: URINE BARBITURATES SCREEN NEGATIVE; URINE METHADONE SCREEN NEGATIVE; URINE PHENCYCLIDINE SCREEN NEGATIVE
[2016-04-25 06:23] LABS: URINE OPIATES LOW UNCONFIRMED POSITIVE
[2016-04-25 06:32] LABS: VENOUS BLOOD BASE EXCESS 2.4 mmol/L; VENOUS BLOOD HCO3 28.4 mmol/L (20-32); VENOUS BLOOD PCO2 49.3 mmHg (35-63); VENOUS BLOOD PH 7.38 (7.30-7.42)
[2016-04-25] MEDS ORDERED: NORMAL SALINE 1000 ML 500 ML IV ONE (06:56)
[2016-04-25 07:28] LABS: ALANINE AMINOTRANSFERASE 34 U/L (9-52); ALBUMIN 2.8 g/dL (3.5-5.0); ALKALINE PHOSPHATASE 65 U/L (38-126); ANION GAP 10 (5-19); ASPARTATE AMINO TRANSFERASE 21 U/L (14-36); BLOOD UREA NITROGEN 23 mg/dL (7-20); CALCIUM 8.3 mg/dL (8.4-10.2); CARBON DIOXIDE 30 mmol/L (22-30); CHLORIDE 105 mmol/L (98-107); CREATININE RESULT 0.78 mg/dL (0.52-1.25); GLUCOSE 85 mg/dL (75-110); SODIUM 144.9 mmol/L (137-145); TOTAL PROTEIN 5.5 g/dL (6.3-8.2)
[2016-04-25 07:36] LABS: POTASSIUM 2.9 mmol/L (3.6-5.0)
[2016-04-25] MEDS ORDERED: POTASSIUM CHLORIDE 10 MEQ TABLET.SA PO ONE (08:48)
[2016-04-25] MEDS ORDERED: ALPRAZOLAM 0.5 MG TABLET PO PRN (08:59)
[2016-04-25] MEDS ORDERED: POTASSIUM CHLORIDE 10 MEQ TABLET.SA PO SCH ×2 (10:00→12:00)
[2016-04-25] MEDS: OXYCODONE HCL IR 5 MG TABLET PO PRN ×2 (10:18→17:03)
[2016-04-25] MEDS: DOCUSATE SODIUM 100 MG CAPSULE PO SCH ×2 (10:45→17:02)
[2016-04-25] MEDS: ENOXAPARIN SODIUM INJ 40 MG/0.4 ML DISP.SYRIN SUBCUT SCH (10:45)
[2016-04-25] MEDS: ASPIRIN 81 MG TABLET, ENT COATED PO SCH (10:45)
[2016-04-25] MEDS ORDERED: ONDANSETRON HCL 8 MG TABLET PO PRN (11:20)
[2016-04-25 16:51] VITALS: BP 96/74
--- NOTE | 2016-04-25 17:32 | PDOC DISCHARGE SUMMARY ---
General - Admit/Disc Date/PCP Admission Date/Primary Care Provider: 04/23/16 21:11 Discharge Date: 04/25/16 - Discharge Diagnosis (1) Hypertensive urgency Is this a current diagnosis for this admission?: YesSummary: Resolved with medication adjustment (2) Acute gastroenteritis Is this a current diagnosis for this admission?: YesSummary: Improved with prn antiemetics, and hydration (3) Acute encephalopathy Is this a current diagnosis for this admission?: YesSummary: Resolved. Most likely related to polysubstance abuse (4) Hypertension Summary: Continue current medications (5) Hepatitis C Is this a current diagnosis for this admission?: YesSummary: Chronic continue to follow post discharged (6) Cocaine use Is this a current diagnosis for this admission?: YesSummary: Counseled (7) Thoracic aortic aneurysm without rupture Is this a current diagnosis for this admission?: YesSummary: Stable 4.5 cm ascending aneurysm (8) Tobacco dependency Is this a current diagnosis for this admission?: YesSummary: Counseled on tobacco cessation she has no intentions of stopping - Additional Information Resuscitation Status: Full Code Discharge Diet: Cardiac Discharge Activity: Activity As Tolerated, Balance Activity w/Rest Home Medications: Alprazolam [Xanax] 1 mg PO QID 04/24/16 Diltiazem HCl [Cardizem Cd] 180 mg PO BID 04/24/16 Gabapentin [Neurontin] 800 mg PO TID 04/24/16 Hydroxyzine HCl [Atarax 50 mg Tablet] 50 mg PO ASDIR PRN 04/24/16 Lisinopril [Prinivil] 20 mg PO BID 04/24/16 Metoprolol Tartrate [Lopressor 25 mg Tablet] 25 mg PO BID 04/24/16 Acetaminophen [Tylenol 325 mg Tablet] 650 mg PO Q8HP PRN tablet 04/25/16 Diltiazem HCl [Cardizem Cd 180 mg Capsule] 180 mg PO Q12A capsule.cr 04/25/16 Hydrocodone/Acetaminophen [[place] 5-325 mg Tablet] 1 tab PO Q6HP PRN #20 tablet 04/25/16 Ondansetron [Zofran Odt] 8 mg PO Q8HP PRN #20 tab.rapdis 04/25/16 History of Present Illness History of Present Illness: MURPHY BRIONES is a 46 year old female who presented to [facility] emergency room on 04/23/2016. She was complain of headache, chest pain , and nausea vomiting. She does have a history of coronary artery disease with prior stent. She was evaluated by the ER physician initial EKG and troponin were negative. She was referred to the hospitalist service for admission to rule out acute coronary syndrome. Hospital Course Hospital Course: Patient was admitted to the hospitalist service on telemetry on IMCU. All 3 troponins were negative. Continue to have episodes nausea and vomiting. She was noted to have hypertensive urgency on admission medications were adjusted accordingly. She had continued periods of nausea and vomiting. She had periods of altered mental status overnight. Her urine drug toxicology was noted to be positive for opiods, benzos, cannabinoids and cocaine. The patient denies cocaine use. This morning she was awake alert and oriented. Vitals were stable. She wanted to be discharged home. Physical Exam Vital Signs: Temp Pulse Resp BP Pulse Ox 98.3 F 88 18 96/74 L 96 04/25/16 16:44 04/25/16 16:44 04/25/16 16:44 04/25/16 16:44 04/25/16 16:44 Pulse Oximeter Continuous Start: 04/25/16 04: 32 Freq: RTQ4 Status: Complete Document 04/25/16 09:47 LBR (Rec: 04/25/16 09:48 LBR [email or web address]) Pulse Oximetry Assessment Oxygen Saturation (92-100) 96 Oxygen Delivery Method Nasal Cannula Fraction of Inspired Oxygen (FIO2) 21 Equipment Usage Equipment in Use Continuous SpO2 Machine # 11 Intake & Output 04/24/16 04/25/16 04/26/16 06:59 06:59 06:59 Intake Total 0 3848 236 Output Total 0 300 Balance 0 3548 236 Weight 81.5 kg 85.2 kg General appearance: PRESENT: no acute distress, obese Head exam: PRESENT: atraumatic, normocephalic Eye exam: PRESENT: conjunctiva pink, EOMI, PERRLA. ABSENT: scleral icterus Ear exam: PRESENT: normal external ear exam Mouth exam: PRESENT: moist, tongue midline Neck exam: ABSENT: carotid bruit, JVD, lymphadenopathy, thyromegaly Respiratory exam: PRESENT: clear to auscultation benji. ABSENT: rales, rhonchi, wheezes Cardiovascular exam: PRESENT: RRR. ABSENT: diastolic murmur, rubs, systolic murmur Pulses: PRESENT: normal dorsalis pedis pul Vascular exam: PRESENT: normal capillary refill Rectal exam: PRESENT: deferred Extremities exam: PRESENT: full ROM. ABSENT: calf tenderness, clubbing, pedal edema Neurological exam: PRESENT: alert, awake, oriented to person, oriented to place , oriented to time, oriented to situation, CN II-XII grossly intact. ABSENT: motor sensory deficit Results Laboratory Results: 04/25/16 04:02 04/25/16 14:36 04/25/16 04/25/16 04/25/16 04:02 04:02 06:15 WBC 8.3 RBC 4.84 Hgb 14.8 Hct 43.5 MCV 90 MCH 30.6 MCHC 34.1 RDW 13.2 Plt Count 165 VBG pH VBG pCO2 VBG HCO3 VBG Base Excess Sodium Cancelled 144.9 Potassium Cancelled 2.9 L* Chloride Cancelled 105 Carbon Dioxide Cancelled 30 Anion Gap Cancelled 10 BUN Cancelled 23 H Creatinine Cancelled 0.78 Est GFR ( Amer) Cancelled > 60 Est GFR (Non-Af Amer) Cancelled > 60 Glucose Cancelled 85 Calcium Cancelled 8.3 L Magnesium Cancelled 2.0 Total Bilirubin Cancelled 1.0 AST Cancelled 21 ALT Cancelled 34 Alkaline Phosphatase Cancelled 65 Total Protein Cancelled 5.5 L Albumin Cancelled 2.8 L 04/25/16 04/25/16 06:15 14:36 WBC RBC Hgb Hct MCV MCH MCHC RDW Plt Count VBG pH 7.38 VBG pCO2 49.3 VBG HCO3 28.4 VBG Base Excess 2.4 Sodium Potassium 3.6 Chloride Carbon Dioxide Anion Gap BUN Creatinine Est GFR ( Amer) Est GFR (Non-Af Amer) Glucose Calcium Magnesium Total Bilirubin AST ALT Alkaline Phosphatase Total Protein Albumin 04/24/16 04/24/16 01:22 08:53 Troponin I < 0.012 0.019 Impressions: Chest X-Ray 04/23/16 13:33 IMPRESSION: NO ACUTE RADIOGRAPHIC FINDING IN THE CHEST. Chest/Abdomen CTA 04/23/16 17:43 IMPRESSION: No CT angio evidence of thoracic aortic dissection or acute pulmonary emboli. Ascending aorta measures 4 cm in diameter, correlate clinically for aortic stenosis. Qualifiers PATEINT BEING DISCHARGED WITH ANY OF THE FOLLOWING DIAGNOSIS?: No Plan Discharge Plan: Home with family Time Spent: Less than 30 Minutes
== END 2016-04-25 17:31 | disposition home or self-care (01) ==
LOC: ER 13:12 → EH 20:24 → UNDOADMOB 20:24 → INTOOBSV 20:24 → EH 21:11 → 3N 23:45
PROVIDERS: ADMIT Family Medicine; ATTEND Family Medicine
DX: R07.9 Chest pain, unspecified (principal); I71.2 Thoracic aortic aneurysm, without rupture; F14.90 Cocaine use, unspecified, uncomplicated; I25.10 Atherosclerotic heart disease of native coronary artery without angina pectoris; R11.10 Vomiting, unspecified; I10 Essential (primary) hypertension; B18.2 Chronic viral hepatitis C; F17.210 Nicotine dependence, cigarettes, uncomplicated; I16.0 Hypertensive urgency; K52.9 Noninfective gastroenteritis and colitis, unspecified; G93.40 Encephalopathy, unspecified; R51 Headache; R11.2 Nausea with vomiting, unspecified; Z79.899 Other long term (current) drug therapy; Z98.61 Coronary angioplasty status
CPT/HCPCS: 93005 ×2; 99285; 96375; 96365; 36415 ×3; 87040; 82553; 82962; 82550; 83690; 83735; 84132; 85025 ×2; 85027; 80053 ×2; 81001; 84484 ×2; 80307 ×2; 82803; 80061; 71010; 71275; 93010 ×2; 94762; G0378 ×3; A9270 ×24; J0360; J3490 ×2; J1885; J2765; J2270; J1650; J2060; J0780; J2550 ×2; J2405 ×2; J7030 ×3; S0028; J0696; S0119

== ENCOUNTER 2016-11-16 14:00 | Emergency (ER) | payer MEDICARE, MEDICAID ==
--- NOTE | 2016-11-16 14:15 | ER Document Report ---
ED Substance Abuse / Acc. OD - General Chief Complaint: Possible Overdose Stated Complaint: POSSIBLE OVERDOSE Time Seen by Provider: 11/16/16 14:12 Notes: The patient is a 46-year-old female, past medical history polysubstance abuse, chronic back pain, presents by EMS after she was found to be unresponsive. Bystanders perform CPR for 2-5 minutes and she was given intranasal Narcan. She is now wide awake and is complaining of right-sided chest pain. Patient said that she took a Percocet that was laced with fentanyl from "[facility]", which is someone new that she bought drugs from today. Patient is tearful and said that she was doing well with her drug abuse, but relapsed 3 months ago when her family member from overdose. Patient denies cough, shortness of breath, nausea, vomiting, diarrhea, constipation, fevers or headache. TRAVEL OUTSIDE OF THE [place] IN LAST 30 DAYS: No - Related Data Allergies/Adverse Reactions: No Known Allergies Allergy (Verified 04/23/16 13:32) Past Medical History - General Information source: Patient, Emergency Med Personnel - Social History Smoking Status: Current Every Day Smoker Drug Abuse: Cocaine, Heroin, Marijuana Family History: CAD, Hyperlipidemia, Hypertension - Past Medical History Cardiac Medical History: Reports: Hx Coronary Artery Disease, Hx Heart Attack, Hx Hypertension Denies: Hx DVT, Hx Hypercholesterolemia, Hx Pulmonary Embolism Pulmonary Medical History: Reports: Hx Bronchitis, Hx COPD, Hx Pneumonia Neurological Medical History: Reports: Hx Migraine. Denies: Hx Seizures Endocrine Medical History: Denies: Hx Diabetes Mellitus Type 1, Hx Diabetes Mellitus Type 2, Hx Hyperthyroidism, Hx Hypothyroidism Renal/ Medical History: Denies: Hx Peritoneal Dialysis GI Medical History: Reports: Hx Gastroesophageal Reflux Disease, Hx Hepatitis - Hepatitis C, untreated. Denies: Hx Cirrhosis Musculoskeltal Medical History: Reports Hx Arthritis, Reports Hx Musculoskeletal Trauma Skin Medical History: Denies Hx Eczema, Denies Hx Psoriasis Psychiatric Medical History: Reports: Hx Anxiety, Hx Depression Infectious Medical History: Reports: Hx Hepatitis - Hepatitis C, untreated Past Surgical History: Reports: Hx Appendectomy, Hx Cardiac Catheterization, Hx Section - 4, Hx Cholecystectomy, Hx Hysterectomy - Immunizations Immunizations up to date: Yes Hx Diphtheria, Pertussis, Tetanus Vaccination: Yes Hx Pneumococcal Vaccination: 11/24/12 Review of Systems - Review of Systems Notes: REVIEW OF SYSTEMS: CONSTITUTIONAL: -fevers, -chills EENT: -eye pain, -difficulty swallowing, -nasal congestion CARDIOVASCULAR: +chest pain, -syncope. RESPIRATORY: -cough, -SOB GASTROINTESTINAL: -abdominal pain, - nausea, -vomiting, -diarrhea GENITOURINARY: -dysuria, -hematuria MUSCULOSKELETAL: -back pain, -neck pain SKIN: -rash or skin lesions. HEMATOLOGIC: -easy bruising or bleeding. LYMPHATIC: -swollen, enlarged glands. NEUROLOGICAL: -altered mental status or loss of consciousness, -headache, - neurologic symptoms PSYCHIATRIC: -anxiety, -depression. ALL OTHER SYSTEMS REVIEWED AND NEGATIVE. Physical Exam - Vital signs Vitals: Temp 98.0 F 11/16/16 14:15 - Notes Notes: PHYSICAL EXAMINATION: GENERAL: Well-appearing, well-nourished and in no acute distress. HEAD: Atraumatic, normocephalic. EYES: Pupils equal round and reactive to light, extraocular movements intact, sclera anicteric, conjunctiva are normal. ENT: nares patent, oropharynx clear without exudates. Moist mucous membranes. NECK: Normal range of motion, supple without lymphadenopathy LUNGS: Breath sounds clear to auscultation bilaterally and equal. No wheezes rales or rhonchi. HEART: Regular rate and rhythm without murmurs. Right anterior chest wall tenderness ABDOMEN: Soft, nontender, normoactive bowel sounds. No guarding, no rebound. No masses appreciated. EXTREMITIES: Normal range of motion, no pitting or edema. No cyanosis. NEUROLOGICAL: Cranial nerves grossly intact. Normal speech, normal gait. Normal sensory and motor exams. PSYCH: Normal mood, normal affect. SKIN: Bruising over anterior chest wall. Course - Re-evaluation Re-evalutation: 11/16/16 16:45 Pt's blood pressure improved after fluids and she is wide awake. Her tox screen is positive for cocaine, opioids and benzos. Patient's labs are unremarkable, other than a slight metabolic acidosis. Instructed patient that she should be admitted for further evaluation and monitoring due to 2 minutes of CPR and her initial hypotension. However patient is adamant that she wants to go home. She is alert, oriented and has decision-making capabilities. Daughter and mother are at bedside and are attempting to convince patient to stay overnight. Patient is drinking and has no criteria for IVC at this time. Provided patient with follow-up at [facility] for substance abuse instructed patient to return immediately to the emergency room if she has any worsening symptoms or any other concerns. Patient told the risks of leaving , including , hypertension, heart attack and she verbalizes these risks back to me. AMA form filled out. 11/16/16 18:25 Pt provided with another liter fluid and she is eating in the emergency room. Once again, counseled patient that she should be admitted due to her overdose and hypotension while her family members are at bedside, but she is adamant about leaving. Told her to stop her blood pressure medications due to her hypotension today. Also gave a prescription for Narcan and instructed family members how to use it. Given very strict return precautions and she understands. Told to return at anytime fur further evaluation and treatment. - Vital Signs Vital signs: Temp Pulse Resp BP Pulse Ox 98.0 F 13 99/68 L 94 11/16/16 14:15 11/16/16 18:16 11/16/16 18:16 11/16/16 18:16 - Laboratory Result Diagrams: 11/16/16 14:27 11/16/16 14:27 Laboratory results interpreted by me: 11/16/16 11/16/16 11/16/16 14:27 14:27 15:30 WBC 11.2 H VBG pH Est GFR (Non-Af Amer) 59 L Direct Bilirubin 0.6 H AST 49 H Alkaline Phosphatase 138 H Ur Leukocyte Esterase SMALL H Salicylates < 1.0 L Acetaminophen < 10 L 11/16/16 15:30 WBC VBG pH 7.27 L Est GFR (Non-Af Amer) Direct Bilirubin AST Alkaline Phosphatase Ur Leukocyte Esterase Salicylates Acetaminophen - Diagnostic Test Radiology reviewed: Image reviewed, Reports reviewed Radiology results interpreted by me: CXR: NAD - EKG Interpretation by Me EKG shows normal: Sinus rhythm, [place], Intervals, QRS Complexes, ST-T Waves When compared to previous EKG there are: No significant change Discharge - Discharge Clinical Impression: Polysubstance abuse Opioid overdose Qualifiers: Encounter type: initial encounter Injury intent: undetermined intent Qualified Code(s): T40.2X4A - Poisoning by other opioids, undetermined, initial encounter Chest pain Qualifiers: Chest pain type: unspecified Qualified Code(s): R07.9 - Chest pain, unspecified Condition: Stable Disposition: AGAINST MEDICAL ADVICE Additional Instructions: COCAINE ABUSE: Cocaine causes many dangerous medical problems. Problems can occur even with "usual" amounts. Cocaine affects judgement, creating a sense of invulnerability. Cocaine users often make bad decisions that seem "great" at the time. Most cocaine users eventually will be hurt by bad job performance, damaged personal relations, crime, and unsafe sexual practices. Toxic effects of cocaine can include seizures, hallucinations, delusions, high blood pressure, heart damage, or sudden . There's always the risk of a "bad batch." But heart attacks, brain hemorrhages, or cardiac arrest can occur unpredictably even with "normal" use. Injection of cocaine is risky for abscesses, endocarditis (heart infection) , pneumonia, and AIDS. Withdrawal from cocaine often causes anxiety and drug cravings. Some users become paranoid and psychotic. Many treatment programs are available, but you must make the decision to quit. Medication can be prescribed to control the symptoms of cocaine toxicity (beta blockers or benzodiazepines). Withdrawal symptoms may require tranquilizers. NARCOTIC / OPIOD ABUSE: Narcotics and opiods are pain-relieving drugs that are often abused. They are addicting. Narcotics cause euphoria, but it often takes increasing amounts to "feel good" and avoid withdrawal symptoms. Overdose of narcotics causes small pupils, coma, and decreased breathing. It's a common cause of . Purity of street narcotics is unpredictable. Injection of narcotics is risky for abscesses, endocarditis (heart infection), pneumonia, and AIDS. Withdrawal from narcotics causes goose bumps, watery mouth, sweating, nasal congestion, muscle aches, abdominal cramps, vomiting, and diarrhea. There 's often restlessness and confusion. Treatment programs are available, but you must make the decision to quit. Medication (such as clonidine) can be prescribed to control the symptoms of withdrawal. OVERDOSE / INGESTION: You have taken more medication than you should have. After your evaluation and care, it is felt that your overdose is not likely to be harmful or of any significant consequences to you and you are being discharged. In the future, you should be careful not to take more medications than what is prescribed for you. Although your overdose does not seem to be of any danger to you at this time, if you develop any unusual or unexpected symptoms after your discharge, you should return to the Emergency Department immediately for re-evaluation. FOR THE OBSERVER: Observe the patient for the next 24 hours and call or go to the hospital if any of the following are noted: prolonged or repeated vomiting, difficulty in arousing, convulsions (seizures or fits), fever, persistent cough, breathing that is too slow or too rapid, or confused or bizarre behavior. If a counselling visit has been arranged, make sure the patient attends. Call the physician or poison control if you have questions. FOLLOW-UP CARE: If you have been referred to a physician for follow-up care, call the physician s office for an appointment as you were instructed or within the next two days. If you experience worsening or a significant change in your symptoms, notify the physician immediately or return to the Emergency Department at any time for re-evaluation. CHEST PAIN OF UNCLEAR CAUSE: The exact cause of your chest pain isn't clear. Fortunately, there is no evidence of a dangerous medical condition. Further testing may be required to find the source of the pain. Most often, we find that this pain is coming from the chest wall -- the muscles or rib joints in the chest. But chest pain can come from the lung and lung lining, the esophagus, the heart valves or heart lining, and even the stomach or gallbladder. Rest. Eat lightly until the pain is gone. We may prescribe medicine for pain and inflammation. You should call the physician immediately if the pain radiates to the shoulder, jaw or arms; if you start to run a fever or develop a cough; or if you develop shortness of breath, or other new or alarming symptoms. NORMAL EXAM AND WORKUP: At this time, your examination and workup show no significant abnormality. No significant abnormal physical findings were noted. All laboratory, EKG, and imaging (x-ray, CT scans, ultrasound) studies that were ordered show no significant abnormality. Although your examination and all studies that were ordered showed no significant abnormal finding, there are no examinations and no studies that are 100% accurate. There is always the possibility that some abnormality could exist and not be detected with physical examination or within the limits and capabilities of laboratory and other studies. You should return or follow up as you were instructed on your visit today for further evaluation if your symptoms do not resolve. CHEST WALL PAIN: Your chest pain may be coming from the chest wall. This is often caused by straining the muscles or joints in the chest during physical activity, direct trauma, coughing, or vigorous vomiting. Persons with arthritis are especially prone to this type of pain, due to inflammation of the cartilage joints near the breast bone. Occasionally, no cause can be found. Rest from strenuous physical activity. This kind of chest pain is usually made worse by movement of the chest. Depending on the symptoms, we may prescribe medicine for pain, muscle relaxation, and antiinflammatory effects. If the pain is new, and seems to be due to muscle strain, cold packs can help. Otherwise, apply gentle warmth to the painful area for 15 minutes every hour or two. You should call contact the doctor immediately if things change. Further evaluation is needed if you develop a fever or cough, if the nature of the pain changes, or if you become short of breath. FOLLOW-UP CARE: If you have been referred to a physician for follow-up care, call the physician s office for an appointment as you were instructed or within the next two days. If you experience worsening or a significant change in your symptoms, notify the physician immediately or return to the Emergency Department at any time for re-evaluation. Prescriptions: Naloxone HCl [Narcan] 4 mg NS ONCE PRN #1 unit PRN Reason: Ondansetron [Zofran Odt 4 mg Tablet] 1 - 2 tab PO Q4H PRN #15 tab.rapdis PRN Reason: For Nausea/Vomiting Referrals: [facility] [Outside] - Follow up as needed
[2016-11-16 14:47] LABS: ABSOLUTE EOSINOPHILS # (AUTO) 0.1 10^3/uL (0.0-0.6); ABSOLUTE LYMPHOCYTES (AUTO) 2.5 10^3/uL (0.5-4.7); ABSOLUTE MONOCYTES (AUTO) 0.9 10^3/uL (0.1-1.4); ABSOLUTE NEUT (AUTO) 7.7 10^3/uL (1.7-8.2); BASOPHILS % (AUTO) 0.2 % (0-2); EOSINOPHILS % (AUTO) 1.1 % (0-6); HEMATOCRIT 40.6 % (36.0-47.0); HEMOGLOBIN 13.6 g/dL (12.0-15.5); HGB HCT DIFFERENCE 0.2; LYMPHOCYTES % (AUTO) 22.3 % (13-45); MEAN CORPUSCULAR HGB CONC 33.5 g/dL (32.0-36.0); MEAN CORPUSCULAR VOLUME 92 fl (80-97); RED CELL DISTRIBUTION WIDTH 13.8 % (11.5-14.0); SEGMENTED NEUTROPHILS % (AUTO) 68.4 % (42-78); WHITE BLOOD COUNT 11.2 10^3/uL (4.0-10.5)
[2016-11-16] MEDS: NORMAL SALINE 1000 ML 1,000 ML IV PRN ×2 (14:50→14:51)
[2016-11-16 15:14] LABS: ALANINE AMINOTRANSFERASE 30 U/L (9-52); ALBUMIN 4.1 g/dL (3.5-5.0); ALKALINE PHOSPHATASE 138 U/L (38-126); ASPARTATE AMINO TRANSFERASE 49 U/L (14-36); BILIRUBIN,DIRECT 0.6 mg/dL (0.0-0.4); BILIRUBIN,TOTAL 0.8 mg/dL (0.2-1.3); BLOOD UREA NITROGEN 12 mg/dL (7-20); CALCIUM 9.3 mg/dL (8.4-10.2); CARBON DIOXIDE 26 mmol/L (22-30); CREATINE KINASE 39 U/L (30-135); CREATININE RESULT 1.01 mg/dL (0.52-1.25); GLUCOSE 97 mg/dL (75-110); POTASSIUM 4.5 mmol/L (3.6-5.0); SODIUM 144.4 mmol/L (137-145); TOTAL PROTEIN 7.5 g/dL (6.3-8.2)
--- NOTE | 2016-11-16 15:14 | RADIOLOGY REPORT (SQ) ---
EXAM DESCRIPTION: CHEST SINGLE VIEW COMPLETED DATE/TIME: 11/16/2016 2:58 pm REASON FOR STUDY: chest pain s/p CPR COMPARISON: 04/23/2016 EXAM PARAMETERS: NUMBER OF VIEWS: One view. TECHNIQUE: Single frontal radiographic view of the chest acquired. RADIATION DOSE: NA LIMITATIONS: None. FINDINGS: LUNGS AND PLEURA: No opacities, masses or pneumothorax. No pleural effusion. MEDIASTINUM AND HILAR STRUCTURES: No masses. Contour normal. HEART AND VASCULAR STRUCTURES: Heart normal in size. Normal vasculature. BONES: No acute findings. HARDWARE: None in the chest. OTHER: No other significant finding. IMPRESSION: NO ACUTE RADIOGRAPHIC FINDING IN THE CHEST. TECHNICAL DOCUMENTATION: JOB ID: [id number]
[2016-11-16 15:21] LABS: ALCOHOL < 10 mg/dL (NONE DETECTED); ANION GAP 12 (5-19); CHLORIDE 106 mmol/L (98-107)
[2016-11-16 15:45] LABS: VENOUS BLOOD BASE EXCESS -1.1 mmol/L; VENOUS BLOOD HCO3 27.1 mmol/L (20-32); VENOUS BLOOD PCO2 60.7 mmHg (35-63); VENOUS BLOOD PH 7.27 (7.30-7.42)
[2016-11-16 16:00] LABS: AMORPHOUS SEDIMENT,URINE TRACE /HPF; APPEARANCE,URINE CLOUDY; BILIRUBIN,URINE NEGATIVE (NEGATIVE); CALCIUM OXALATE CRYSTALS,URINE MANY /HPF; GLUCOSE, URINE NEGATIVE (NEGATIVE); KETONES,URINE NEGATIVE (NEGATIVE); LEUKOCYTE ESTERASE,URINE SMALL (NEGATIVE); NITRITE,URINE NEGATIVE (NEGATIVE); PROTEIN,URINE NEGATIVE (NEGATIVE); UROBILINOGEN,URINE NEGATIVE mg/dL (<2.0)
[2016-11-16] MEDS ORDERED: NORMAL SALINE 1000 ML 1,000 ML IV ONE ×2 (16:07→17:37)
[2016-11-16 16:14] LABS: URINE BARBITURATES SCREEN NEGATIVE; URINE METHADONE SCREEN NEGATIVE; URINE OPIATES LOW UNCONFIRMED POSITIVE; URINE PHENCYCLIDINE SCREEN NEGATIVE
[2016-11-16 18:19] VITALS: BP 99/68
--- NOTE | 2016-11-16 21:34 | EKG REPORT ---
SEVERITY:- ABNORMAL ECG - SINUS RHYTHM BORDERLINE LEFT AXIS DEVIATION ABNRM R PROG, CONSIDER ASMI OR LEAD PLACEMENT : Confirmed by: Chris Jacobs 16-Nov-2016 21:34:01
== END 2016-11-16 18:46 | disposition left against medical advice (07) ==
LOC: ER 14:00
DX: T40.2X4A Poisoning by other opioids, undetermined, initial encounter (principal); R07.9 Chest pain, unspecified; F19.10 Other psychoactive substance abuse, uncomplicated; M54.9 Dorsalgia, unspecified; G89.29 Other chronic pain; F17.200 Nicotine dependence, unspecified, uncomplicated
CPT/HCPCS: 93005; 99284; 36415; 80307 ×4; 82550; 83690; 85025; 81025; 80053; 81001; 84484; 82803; 83605; 71010; 93010; J7030

== ENCOUNTER 2016-11-20 19:45 | Emergency (ER) | payer MEDICARE, MEDICAID ==
[2016-11-20 20:42] LABS: ABSOLUTE LYMPHOCYTES (AUTO) 0.9 10^3/uL (0.5-4.7); ABSOLUTE MONOCYTES (AUTO) 0.3 10^3/uL (0.1-1.4); ABSOLUTE NEUT (AUTO) 10.5 10^3/uL (1.7-8.2); BASOPHILS % (AUTO) 0.3 % (0-2); EOSINOPHILS % (AUTO) 0.1 % (0-6); HEMATOCRIT 49.3 % (36.0-47.0); HEMOGLOBIN 16.7 g/dL (12.0-15.5); HGB HCT DIFFERENCE 0.8; LYMPHOCYTES % (AUTO) 7.7 % (13-45); MEAN CORPUSCULAR HEMOGLOBIN 30.8 pg (27.0-33.4); MEAN CORPUSCULAR HGB CONC 33.9 g/dL (32.0-36.0); MEAN CORPUSCULAR VOLUME 91 fl (80-97); MONOCYTES % (AUTO) 2.5 % (3-13); RED BLOOD COUNT 5.43 10^6/uL (3.72-5.28); RED CELL DISTRIBUTION WIDTH 13.5 % (11.5-14.0); SEGMENTED NEUTROPHILS % (AUTO) 89.4 % (42-78); WHITE BLOOD COUNT 11.7 10^3/uL (4.0-10.5)
[2016-11-20] MEDS ORDERED: ONDANSETRON HCL INJ/PF 4 MG/2 ML SDV IV ONE (20:59)
[2016-11-20 21:00] LABS: ALANINE AMINOTRANSFERASE 31 U/L (9-52); ALKALINE PHOSPHATASE 148 U/L (38-126); ASPARTATE AMINO TRANSFERASE 27 U/L (14-36); BILIRUBIN,DIRECT 0.6 mg/dL (0.0-0.4); BILIRUBIN,TOTAL 1.3 mg/dL (0.2-1.3); BLOOD UREA NITROGEN 16 mg/dL (7-20); CALCIUM 10.5 mg/dL (8.4-10.2); CREATININE RESULT 0.66 mg/dL (0.52-1.25); GLUCOSE 164 mg/dL (75-110); MAGNESIUM 1.9 mg/dL (1.6-2.3); TOTAL PROTEIN 8.9 g/dL (6.3-8.2)
[2016-11-20 21:14] LABS: CARBON DIOXIDE 24 mmol/L (22-30); CHLORIDE 101 mmol/L (98-107); POTASSIUM 3.5 mmol/L (3.6-5.0); SODIUM 145.7 mmol/L (137-145)
--- NOTE | 2016-11-20 21:18 | RADIOLOGY REPORT (SQ) ---
EXAM DESCRIPTION: CT HEAD WITHOUT COMPLETED DATE/TIME: 11/20/2016 9:11 pm REASON FOR STUDY: new onset seizure COMPARISON: None. TECHNIQUE: Axial images acquired through the brain without intravenous contrast. Images reviewed wi th bone, brain and subdural windows. Images stored on PACS. All CT scanners at this facility use dose modulation, iterative reconstruction, and/or weight based d osing when appropriate to reduce radiation dose to as low as reasonably achievable (ALARA). [facility]: Dose Right [facility]: CareDose [facility]: Dose Right [facility]: Teradose 4D [facility]: ThoroughCare RADIATION DOSE: Up-to-date CT equipment and radiation dose reduction techniques were employed. CTDIv ol: 64.6 mGy. DLP: 1163 mGy-cm. mGy. LIMITATIONS: None. FINDINGS: VENTRICLES: Normal size and contour. CEREBRUM: No masses. No hemorrhage. No midline shift. No evidence for acute infarction. Normal gra y/white matter differentiation. No areas of low density in the white matter. CEREBELLUM: No masses. No hemorrhage. No alteration of density. No evidence for acute infarction. EXTRAAXIAL SPACES: No fluid collections. No masses. ORBITS AND GLOBE: No intra- or extraconal masses. Normal contour of globe without masses. CALVARIUM: No fracture. PARANASAL SINUSES: No fluid or mucosal thickening. SOFT TISSUES: No mass or hematoma. OTHER: No other significant finding. IMPRESSION: NORMAL BRAIN CT WITHOUT CONTRAST. COMMENT: Quality ID # [id number]: Final reports with documentation of one or more dose reduction techniques (e.g., Automated exposure control, adjustment of the mA and/or kV according to patient size, use of iterative reconstruction technique) TECHNICAL DOCUMENTATION: JOB ID: [id number] All Rights Reserved
[2016-11-20 21:20] LABS: ALCOHOL < 10 mg/dL (NONE DETECTED); ANION GAP 21 (5-19)
[2016-11-20] MEDS ORDERED: IBUPROFEN 600 MG TABLET PO ONE (21:23)
[2016-11-20 21:44] LABS: AMORPHOUS SEDIMENT,URINE TRACE /HPF; APPEARANCE,URINE CLOUDY; BILIRUBIN,URINE NEGATIVE (NEGATIVE); GLUCOSE, URINE NEGATIVE (NEGATIVE); KETONES,URINE 20 mg/dL (NEGATIVE); LEUKOCYTE ESTERASE,URINE MODERATE (NEGATIVE); NITRITE,URINE POSITIVE (NEGATIVE); PROTEIN,URINE >=500 mg/dL (NEGATIVE); URINE SPECIFIC GRAVITY 1.019; UROBILINOGEN,URINE NEGATIVE mg/dL (<2.0)
[2016-11-20 21:53] LABS: URINE BARBITURATES SCREEN NEGATIVE; URINE METHADONE SCREEN NEGATIVE; URINE OPIATES LOW UNCONFIRMED POSITIVE; URINE PHENCYCLIDINE SCREEN NEGATIVE
[2016-11-20] MEDS ORDERED: CLONIDINE HCL 0.2 MG TABLET PO ONE (22:28)
[2016-11-20] MEDS ORDERED: METOCLOPRAMIDE HCL INJ/PF 10 MG/2 ML SDV IV ONE (22:28)
[2016-11-20] MEDS ORDERED: DIPHENHYDRAMINE HCL 50 MG/ML VIAL IV ONE (22:28)
[2016-11-20] MEDS ORDERED: NORMAL SALINE 1000 ML 1,000 ML IV PRN (22:28)
--- NOTE | 2016-11-20 23:21 | ER Document Report ---
ED General - General Chief Complaint: Probable Seizure Stated Complaint: POSSIBLE SEIZURE Time Seen by Provider: 11/20/16 20:22 Mode of Arrival: Ambulatory Information source: Patient TRAVEL OUTSIDE OF THE [place] IN LAST 30 DAYS: No - HPI Patient complains to provider of: Possible seizure, withdrawal symptoms Onset: This evening Onset/Duration: Sudden Quality of pain: Achy Severity: Moderate Pain Level: 3 Associated symptoms: Body/muscle aches, Nausea, Vomiting Exacerbated by: Denies Relieved by: Denies Recently seen / treated by doctor: Yes Notes: Patient is a 46-year-old female who presents to the emergency room via EMS after possible seizure, daughter who is present at the time states that patient called her to the bathroom because she was not feeling well, when she arrived to the bathroom she fell patient stiffen up and then all of her muscle started shaking, this lasted for approximately 1 minute, patient did not have any injuries related to this because she was already lying down in the bathtub and she did not go underwater at any point in time, she has no history of seizures but does have a history of substance abuse with a recent overdose of Percocet which she believes was laced with fentanyl, she reports that her brother approximately 3 months ago from an overdose and she has been using drugs again ever since, reports that she was clean prior to that basically says she has been using heroin on a daily basis, although she stopped using it 3 days ago after she was seen here in this department for an overdose - Related Data Allergies/Adverse Reactions: No Known Allergies Allergy (Verified 04/23/16 13:32) Past Medical History - General Information source: Patient - Social History Smoking Status: Current Every Day Smoker Chew tobacco use (# tins/day): No Frequency of alcohol use: Occasional Drug Abuse: Cocaine, Heroin, Prescription drugs Family History: CAD, Hyperlipidemia, Hypertension Patient has suicidal ideation: No Patient has homicidal ideation: No - Past Medical History Cardiac Medical History: Reports: Hx Coronary Artery Disease, Hx Heart Attack, Hx Hypertension Denies: Hx DVT, Hx Hypercholesterolemia, Hx Pulmonary Embolism Pulmonary Medical History: Reports: Hx Bronchitis, Hx COPD, Hx Pneumonia Neurological Medical History: Reports: Hx Migraine. Denies: Hx Seizures Endocrine Medical History: Denies: Hx Diabetes Mellitus Type 1, Hx Diabetes Mellitus Type 2, Hx Hyperthyroidism, Hx Hypothyroidism Renal/ Medical History: Denies: Hx Peritoneal Dialysis GI Medical History: Reports: Hx Gastroesophageal Reflux Disease, Hx Hepatitis - Hepatitis C, untreated. Denies: Hx Cirrhosis Musculoskeltal Medical History: Reports Hx Arthritis, Reports Hx Musculoskeletal Trauma Skin Medical History: Denies Hx Eczema, Denies Hx Psoriasis Psychiatric Medical History: Reports: Hx Anxiety, Hx Depression Infectious Medical History: Reports: Hx Hepatitis - Hepatitis C, untreated Past Surgical History: Reports: Hx Appendectomy, Hx Cardiac Catheterization, Hx Section - 4, Hx Cholecystectomy, Hx Hysterectomy - Immunizations Immunizations up to date: Yes Hx Diphtheria, Pertussis, Tetanus Vaccination: Yes Hx Pneumococcal Vaccination: 11/24/12 Review of Systems - Review of Systems Constitutional: No symptoms reported EENT: No symptoms reported Cardiovascular: No symptoms reported Respiratory: No symptoms reported Gastrointestinal: See HPI Genitourinary: No symptoms reported Female Genitourinary: No symptoms reported Musculoskeletal: See HPI Skin: No symptoms reported Hematologic/Lymphatic: No symptoms reported Neurological/Psychological: See HPI -: Yes All other systems reviewed and negative Physical Exam - Vital signs Vitals: Resp BP 10 L 142/93 H 11/20/16 19:50 11/20/16 19:50 Interpretation: Normal - General General appearance: Alert In distress: Mild - HEENT Head: Normocephalic, Atraumatic Eyes: Normal Pupils: PERRL - Respiratory Respiratory status: No respiratory distress Chest status: Nontender Breath sounds: Normal Chest palpation: Normal - Cardiovascular Rhythm: Regular Heart sounds: Normal auscultation Murmur: No - Abdominal Inspection: Normal Distension: No distension Bowel sounds: Normal Tenderness: Tender - Epigastric Organomegaly: No organomegaly - Back Back: Normal, Nontender - Extremities General upper extremity: Normal inspection, Nontender, Normal color, Normal ROM , Normal temperature General lower extremity: Normal inspection, Nontender, Normal color, Normal ROM , Normal temperature, Normal weight bearing. No: Krystyna's sign - Neurological Neuro grossly intact: Yes Cognition: Normal Orientation: AAOx4 [place] Coma Scale Eye Opening: Spontaneous [place] Coma Scale Verbal: Oriented [place] Coma Scale Motor: Obeys Commands [place] Coma Scale Total: 15 Speech: Normal Motor strength normal: LUE, RUE, LLE, RLE Sensory: Normal - Psychological Associated symptoms: Tearful - Skin Skin Temperature: Warm Skin Moisture: Dry Skin Color: Normal Course - Re-evaluation Re-evalutation: 11/20/16 23:51 Patient reports feeling much better after IV fluids and medications in the department, her symptoms are likely related to withdrawal from several substances, workup here in the emergency room is fairly unremarkable, she was given prescriptions for several medications to help with withdrawal symptoms, patient did deny any suicidal or homicidal ideations, she was provided with a list of resources for assistance with detox or rehab, several family members were present at bedside who appear to be quite supportive and state they will ensure that patient gets the support and help she needs to get clean at this point in time, we agree to return patient to the emergency room if symptoms worsen or any additional concerns, patient acknowledges understanding and agreement with this plan as well - Vital Signs Vital signs: Temp Pulse Resp BP Pulse Ox 98.1 F 71 18 153/105 H 99 11/20/16 20:01 11/20/16 23:30 11/20/16 23:30 11/20/16 23:30 11/20/16 23:30 - Laboratory Result Diagrams: 11/20/16 20:32 11/20/16 20:32 Laboratory results interpreted by me: 11/20/16 11/20/16 11/20/16 20:32 20:32 21:30 WBC 11.7 H RBC 5.43 H Hgb 16.7 H Hct 49.3 H Seg Neutrophils % 89.4 H Lymphocytes % 7.7 L Monocytes % 2.5 L Absolute Neutrophils 10.5 H Sodium 145.7 H Potassium 3.5 L Anion Gap 21 H Glucose 164 H Calcium 10.5 H Direct Bilirubin 0.6 H Alkaline Phosphatase 148 H Total Protein 8.9 H Urine Protein >=500 H Urine Ketones 20 H Urine Blood SMALL H Urine Nitrite POSITIVE H Ur Leukocyte Esterase MODERATE H - Diagnostic Test Radiology reviewed: Image reviewed, Reports reviewed Discharge - Discharge Clinical Impression: Opiate withdrawal, Seizure Condition: Stable Disposition: HOME, SELF-CARE Instructions: New Seizure ([facility]) Additional Instructions: Follow up with your primary care provider in one to 2 days. Return to the emergency room immediately if symptoms worsen or any additional concerns. Prescriptions: Clonidine HCl 0.1 mg PO TID #30 tablet Diphenhydramine HCl [Benadryl 25 Mg Capsule] 25 mg PO Q6 #30 capsule Lorazepam [Ativan 0.5 mg Tablet] 0.5 mg PO Q4 PRN #14 tab PRN Reason: Metoclopramide HCl [Reglan 10 mg Tablet] 1 - 2 tab PO ASDIR PRN #25 tablet PRN Reason:
[2016-11-20] MEDS ORDERED: ONDANSETRON ODT 4 MG TAB (6 TAB/DSPK) PO PRN (23:23)
[2016-11-20 23:32] VITALS: BP 153/105
== END 2016-11-20 23:29 | disposition home or self-care (01) ==
LOC: ER 19:45
DX: F11.23 Opioid dependence with withdrawal (principal); R56.9 Unspecified convulsions; R11.2 Nausea with vomiting, unspecified; R10.816 Epigastric abdominal tenderness; I25.10 Atherosclerotic heart disease of native coronary artery without angina pectoris; I25.2 Old myocardial infarction; I10 Essential (primary) hypertension; J44.9 Chronic obstructive pulmonary disease, unspecified; F17.200 Nicotine dependence, unspecified, uncomplicated
CPT/HCPCS: 99284; 96361; 96374; 96375; 36415; 80307 ×2; 83735; 84703; 85025; 80053; 81001; 70450; A9270 ×3; J1200; J2765; J2405; J7030

== ENCOUNTER 2017-01-14 22:39 | Emergency (ER) | payer MEDICARE, MEDICAID ==
[2017-01-14] MEDS ORDERED: IPRATROPIUM/ALBUTEROL 0.5-2.5 MG/3 ML AMPUL NEB ONE (23:31)
--- NOTE | 2017-01-15 00:15 | RADIOLOGY REPORT (SQ) ---
EXAM DESCRIPTION: CHEST SINGLE VIEW COMPLETED DATE/TIME: 01/14/2017 11:56 pm REASON FOR STUDY: dyspnea, OD, ? overdose COMPARISON: Chest x-ray 11/16/2016. EXAM PARAMETERS: NUMBER OF VIEWS: One view. TECHNIQUE: Single frontal radiographic view of the chest acquired. RADIATION DOSE: NA LIMITATIONS: None. FINDINGS: LUNGS AND PLEURA: No consolidation, pneumothorax or pleural effusion. MEDIASTINUM AND HILAR STRUCTURES: No masses. Contour normal. HEART AND VASCULAR STRUCTURES: Heart normal in size. Normal vasculature. BONES: No acute findings. HARDWARE: None in the chest. IMPRESSION: No acute radiographic finding in the chest. TECHNICAL DOCUMENTATION: JOB ID: [id number]
--- NOTE | 2017-01-15 01:13 | ER Document Report ---
ED General - General Chief Complaint: Accidental Overdose Stated Complaint: POSSIBLE OVERDOSE Time Seen by Provider: 01/14/17 23:00 Notes: Patient is a 47-year-old female presents with complaint of opiate overdose. Patient was found poorly responsive and was given Narcan. Patient is awake and alert. She did vomit several times after receiving Narcan. Patient says that she does have history of heroin abuse. She does admit to injecting heroin. She said she injected in her breasts. She says she uses heroin approximately every other day. She says she was clean for a while but approximately 3 months ago she also family member and has been using heroin again. She denies being suicidal. She does smoke. She does have history of COPD. She has no other complaints at this time. TRAVEL OUTSIDE OF THE [place] IN LAST 30 DAYS: No - Related Data Allergies/Adverse Reactions: No Known Allergies Allergy (Verified 04/23/16 13:32) Past Medical History - Social History Smoking Status: Current Every Day Smoker Frequency of alcohol use: None Drug Abuse: Heroin Family History: CAD, Hyperlipidemia, Hypertension - Past Medical History Cardiac Medical History: Reports: Hx Coronary Artery Disease, Hx Heart Attack, Hx Hypertension Denies: Hx DVT, Hx Hypercholesterolemia, Hx Pulmonary Embolism Pulmonary Medical History: Reports: Hx Bronchitis, Hx COPD, Hx Pneumonia Neurological Medical History: Reports: Hx Migraine. Denies: Hx Seizures Endocrine Medical History: Denies: Hx Diabetes Mellitus Type 1, Hx Diabetes Mellitus Type 2, Hx Hyperthyroidism, Hx Hypothyroidism Renal/ Medical History: Denies: Hx Peritoneal Dialysis GI Medical History: Reports: Hx Gastroesophageal Reflux Disease, Hx Hepatitis - Hepatitis C, untreated. Denies: Hx Cirrhosis Musculoskeltal Medical History: Reports Hx Arthritis, Reports Hx Musculoskeletal Trauma Skin Medical History: Denies Hx Eczema, Denies Hx Psoriasis Psychiatric Medical History: Reports: Hx Anxiety, Hx Depression Infectious Medical History: Reports: Hx Hepatitis - Hepatitis C, untreated Past Surgical History: Reports: Hx Appendectomy, Hx Cardiac Catheterization, Hx Section - 4, Hx Cholecystectomy, Hx Hysterectomy - Immunizations Immunizations up to date: Yes Hx Diphtheria, Pertussis, Tetanus Vaccination: Yes Hx Pneumococcal Vaccination: 11/24/12 Review of Systems - Review of Systems Notes: My Normal Review Basic REVIEW OF SYSTEMS: CONSTITUTIONAL : Denies fever, chills, or sweats. Denies recent illness. RESPIRATORY: Denies cough, cold, or chest congestion. Denies shortness of breath, difficulty breathing, or wheezing. GASTROINTESTINAL: Denies abdominal pain. Vomiting. GENITOURINARY: Denies difficulty urinating, painful urination, burning, frequency, or blood in urine. MUSCULOSKELETAL: Denies neck or back pain or joint pain or swelling. SKIN: Denies rash or skin lesions. NEUROLOGICAL: Denies altered mental status or loss of consciousness. Denies headache. Denies weakness or paralysis or loss of use of either side. Denies problems with gait or speech. Denies sensory or motor loss. ALL OTHER SYSTEMS REVIEWED AND NEGATIVE. Physical Exam - Vital signs Vitals: Temp Resp Pulse Ox 98.8 F 11 L 91 L 01/14/17 22:53 01/14/17 22:53 01/14/17 22:53 - Notes Notes: General Appearance: Well nourished, alert, cooperative, no acute distress, no obvious discomfort. Vitals: reviewed, See vital signs table. Head: no swelling or tenderness to the head Eyes: PERRL, EOMI, Conjuctiva clear Mouth: No decreasd moisture Chest wall: Patient has multiple track card in the breasts with bruising from multiple injections. Lungs: No wheezing, No rales, scattered rhonci, No accessory muscle use, good air exchange bilaterally. Heart: Normal rate, Regular rythm, No murmur, no rub Abdomen: Normal BS, soft, No rigidity, No abdominal tenderness, No guarding, no rebound, no abdominal masses, no organomegaly Extremities: strength 5/5 in all extremities, good pulses in all extremities, no swelling or tenderness in the extremities, no edema. Skin: warm, dry, appropriate color, no rash Neuro: speech clear, oriented x 3, normal affect, responds appropriately to questions. Course - Re-evaluation Re-evalutation: 01/15/17 01:09 On repeat auscultation lung haro are now clear. Patient looks well and is in no distress. I will take her off oxygen and watch her for another 30 minutes to make sure that her oxygen saturations remain normal. 01/15/17 02:06 On reevaluation patient is awake and alert and acting appropriately. Oxygen saturations around 94-95%. Lung haro are clear. She wishes to go home. I did offer her to stay and speak with psychiatry about further rehab resources. Patient says that she wants to go home and would prefer to follow-up with outpatient resources. I will prescribe her Phenergan to help with nausea and vomiting due to any withdrawal symptoms she might have. She says Benadryl also helps. I informed her that she can take Benadryl but I recommend that she does not take it at the same time his Phenergan is that this will make her sleepy. Also informed her not to drive when taking these medications as they may make her sleepy. I encouraged her return to ER anytime if she needs further help. Patient agrees with plan will be discharged home. Dictation of this chart was performed using voice recognition software; therefore, there may be some unintended grammatical errors. 01/15/17 02:07 - Vital Signs Vital signs: Temp Pulse Resp BP Pulse Ox 98.8 F 10 L 125/95 H 93 01/14/17 22:53 01/15/17 00:01 01/15/17 00:01 01/15/17 00:01 Discharge - Discharge Clinical Impression: Overdose Condition: Good Disposition: HOME, SELF-CARE Additional Instructions: Please have a low threshold to return to the ER if you feel you are having difficulty breathing, having intractable vomiting, fevers, or feel unwell. Please follow-up with outpatient rehab resources such as [facility]. I will place information to them in your discharge paperwork. I have prescribed Benadryl and Phenergan as you said these have helped you in the past curb withdrawal symptoms. Please be careful in trying to take them at the same time as they will make you very sleepy. Do not drive after taking the Benadryl or Phenergan. Return to ER if you have any further concerns. Prescriptions: Diphenhydramine HCl [Benadryl] 25 mg PO Q6 PRN #20 capsule PRN Reason: Promethazine HCl [Phenergan 25 mg Tablet] 1 tab PO Q6H PRN #15 tablet PRN Reason:
[2017-01-15 02:24] VITALS: BP 127/87
== END 2017-01-15 02:24 | disposition home or self-care (01) ==
LOC: ER 22:39
DX: T40.601A Poisoning by unspecified narcotics, accidental (unintentional), initial encounter (principal); F11.90 Opioid use, unspecified, uncomplicated; J44.9 Chronic obstructive pulmonary disease, unspecified; F17.200 Nicotine dependence, unspecified, uncomplicated; X58.XXXA Exposure to other specified factors, initial encounter
CPT/HCPCS: 94640; 99284; 71010; A9270; J7620